=== PATIENT | female | born 1990 | race Caucasian/White ===

== ENCOUNTER 2018-08-07 12:04 | Emergency (ER) | payer BC ==
[2018-08-07 12:10] VITALS: BP 150/89; PULSE 110; TEMP 98.9; BMI 28.3
[2018-08-07] MEDS ORDERED: SODIUM CHLORIDE 1,000 ML IV STA (12:39)
--- NOTE | 2018-08-07 12:39 | PDOC ---
History of Present Illness <Bambi Bhatt - Last Filed: 08/07/18 13:12> - General History Source: Patient - History of Present Illness Timing/Duration: reports: getting worse <Denisa Arce - Last Filed: 08/07/18 14:32> - General Chief Complaint: Nausea/Vomiting Stated Complaint: NAUSEA/VOMITING Time Seen by Provider: 08/07/18 12:14 Past History <Bambi Bhatt - Last Filed: 08/07/18 13:12> - Past Medical History COPD: No - Suicide/Smoking/Psychosocial Hx Smoking History: Never smoked <Denisa Arce - Last Filed: 08/07/18 14:32> - Past Medical History Allergies/Adverse Reactions: Allergies Allergy/AdvReac Type Severity Reaction Status Date / Time No Known Allergies Allergy Verified 08/07/18 12:08 Home Medications: Ambulatory Orders Metoclopramide HCl [Reglan] 10 mg PO Q8H #15 tablet 08/07/18 Review of Systems - Review of Systems Constitutional: No: Chills, Fever ABD/GI: Yes: Nausea, Vomiting, Abdominal cramping : No: Dysuria, Flank Pain, Hematuria <Denisa Arce - Last Filed: 08/07/18 14:32> *Physical Exam - Vital Signs Last Vital Signs Temp Pulse Resp BP Pulse Ox 98.9 F 110 H 18 150/89 98 08/07/18 12:08 08/07/18 12:08 08/07/18 12:08 08/07/18 12:08 08/07/18 12:08 <Bambi Bhatt - Last Filed: 08/07/18 13:12> - Vital Signs Last Vital Signs Temp Pulse Resp BP Pulse Ox 98.9 F 110 H 18 150/89 98 08/07/18 12:08 08/07/18 12:08 08/07/18 12:08 08/07/18 12:08 08/07/18 12:08 - Physical Exam General Appearance: Yes: Appropriately Dressed. No: Apparent Distress HEENT: positive: Normal Voice Neck: positive: Supple Respiratory/Chest: negative: Respiratory Distress Gastrointestinal/Abdominal: positive: Soft. negative: Tender Musculoskeletal: negative: CVA Tenderness Integumentary: positive: Dry, Warm Neurologic: positive: Fully Oriented, Alert, Normal Mood/Affect <Denisa Arce - Last Filed: 08/07/18 14:32> ED Treatment Course - LABORATORY CBC & Chemistry Diagram: 08/07/18 12:59 08/07/18 12:59 - ADDITIONAL ORDERS Additional order review: Laboratory Results 08/07/18 12:49 Urine HCG, Qual Positive - Medications Given in the ED: ED Medications Discontinued Medications Generic Name Dose Route Start Last Admin Trade Name Chaparro PRN Reason Stop Dose Admin Metoclopramide HCl 10 mg 08/07/18 12:40 08/07/18 13:10 Reglan Injection - IVPB 08/07/18 12:41 10 mg ONCE ONE Administration <Bambi Bhatt - Last Filed: 08/07/18 13:12> - LABORATORY CBC & Chemistry Diagram: 08/07/18 12:59 08/07/18 12:59 <Denisa Arce - Last Filed: 08/07/18 14:32> Medical Decision Making - Medical Decision Making The patient was seen and evaluated in conjunction with midlevel provider under my direct supervision, ancillary studies were reviewed. I agree with the plan as outlined SANDIE Arce. HPI, workup/dispo as outlined. VS reviewed, mild tachycardia initially; likely from vomiting and physio state of 08/07/18 13:12 08/07/18 13:12 <Bambi Bhatt - Last Filed: 08/07/18 13:12> - Medical Decision Making 08/07/18 12:37 27 yo F, , tested + on home preg test 2 weeks ago per pt, approximately 7-8 weeks by dates, no as of yet and now here with intractable nausea, vomiting. Patient states she's been nauseous for several weeks and has vomited intermittently but for the past 2 days symptoms have worsened and now unable to tolerate po. Reports intermittent mild lower abdominal cramping but no vaginal bleed or dysuria see exam Hyperemesis gravidarum Exam only remarkable for HR of 111 -IVF -antiemetic -labs -US 08/07/18 12:50 08/07/18 14:32 Labs unremarkable. Patient reports feeling better with meds and able to tolerate po. Ultrasound read as +IUP at 6 weeks 1 day with heart rate. Stable for discharge. 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
[2018-08-07] MEDS ORDERED: METOCLOPRAMIDE HCL INJECTION 10 MG/2 ML VIAL IVPB ONE (12:40)
[2018-08-07] MEDS ORDERED: ONDANSETRON 4 MG/2 ML VIAL ONE (13:05)
[2018-08-07] MEDS ORDERED: METOCLOPRAMIDE HCL INJECTION 10 MG/2 ML VIAL ONE (13:06)
[2018-08-07 13:09] LABS: HCG,QUALITATIVE URINE Positive
[2018-08-07 13:13] LABS: BASO % 0.8 % (0-2.0); EOS % 1.8 % (0-4.5); HEMATOCRIT 38.3 % (32.4-45.2); HEMOGLOBIN 13.1 GM/dL (10.7-15.3); LYMPH % 22.4 % (8-40); MCHC 34.3 g/dl (32.0-36.0); MEAN CELL VOLUME 90.5 fl (80-96); PLATELET COUNT 269 K/MM3 (134-434); RBC 4.23 M/mm3 (3.60-5.2); RDW 13.1 % (11.6-15.6); WHITE BLOOD COUNT 7.3 K/mm3 (4.0-10.0)
[2018-08-07 13:15] LABS: PH,URINE 5.5 (5.0-8.0); URINE APPEARANCE CLEAR; URINE BILIRUBIN NEGATIVE (NEGATIVE); URINE COLOR YELLOW; URINE GLUCOSE (UA) NEGATIVE (NEGATIVE); URINE KETONE 2+ (NEGATIVE); URINE LEUK ESTERASE NEGATIVE (NEGATIVE); URINE NITRITE NEGATIVE (NEGATIVE); URINE PROTEIN NEGATIVE (NEGATIVE); URINE UROBILINOGEN 0.2 mg/dL (0.2-1.0)
[2018-08-07 13:45] LABS: ALBUMIN 4.2 g/dl (3.4-5.0); ALK PHOS 73 U/L (45-117); ANION GAP 9 MMOL/L (8-16); BILIRUBIN,TOTAL 0.7 mg/dL (0.2-1); BLOOD UREA NITROGEN 9 mg/dL (7-18); CALCIUM 9.7 mg/dL (8.5-10.1); CHLORIDE 104 mmol/L (98-107); CO2 24 mmol/L (21-32); CREATININE 0.5 mg/dL (0.55-1.3); GLUCOSE,RANDOM 77 mg/dL (74-106); POTASSIUM 4.3 mmol/L (3.5-5.1); SGOT/AST 15 U/L (15-37); SGPT/ALT 20 U/L (13-61); SODIUM 137 mmol/L (136-145); TOT PROT 8.2 g/dl (6.4-8.2)
== END 2018-08-07 14:50 | disposition home or self-care (01) ==
LOC: JER 12:04
PROC: 3E0337Z Introduction of Electrolytic and Water Balance Substance into Peripheral Vein, Percutaneous Approach (ICD-10-PCS; principal; 2018-08-07)
PROC: 3E033GC Introduction of Other Therapeutic Substance into Peripheral Vein, Percutaneous Approach (ICD-10-PCS; 2018-08-07)
DX: O26.891 Other specified pregnancy related conditions, first trimester (principal); O21.0 Mild hyperemesis gravidarum; Z3A.08 8 weeks gestation of pregnancy
CPT/HCPCS: 36415; 76817-TC; 80053; 81003; 84702; 84703; 85025; 99281-25; J7030

== ENCOUNTER 2018-09-06 20:00 | Emergency (ER) | payer BC | END 2018-09-07 02:05 | disposition home or self-care (01) | LOC: JER 09-07 02:05 | PROC: 3E033GC Introduction of Other Therapeutic Substance into Peripheral Vein, Percutaneous Approach (ICD-10-PCS; principal; 2018-09-06) | DX: O26.891 Other specified pregnancy related conditions, first trimester (principal); O21.0 Mild hyperemesis gravidarum; Z3A.10 10 weeks gestation of pregnancy ==

== ENCOUNTER 2018-09-14 15:24 | Emergency (ER) | payer BC | END 2018-09-14 20:26 | disposition home or self-care (01) | LOC: JER 15:24 ==

== ENCOUNTER 2018-09-26 20:05 | Inpatient (IN) | payer BC ==
[2018-09-26 20:55] LABS: BASO % 0.4 % (0-2.0); EOS % 0.3 % (0-4.5); HEMOGLOBIN 14.6 GM/dL (10.7-15.3); LYMPH % 15.2 % (8-40); MCH 29.9 pg (25.7-33.7); MEAN PLT VOLUME 9.1 fl (7.5-11.1); MONO % 9.8 % (3.8-10.2); NEUT % 74.3 % (42.8-82.8); PLATELET COUNT 272 K/MM3 (134-434); RBC 4.89 M/mm3 (3.60-5.2); RDW 14.5 % (11.6-15.6); WHITE BLOOD COUNT 10.9 K/mm3 (4.0-10.0)
[2018-09-26] MEDS ORDERED: FAMOTIDINE 20 MG/50 ML IVPB 20 MG/50 ML MG IVPB ONE ×2 (21:16→21:29)
[2018-09-26] MEDS ORDERED: ONDANSETRON 4 MG/2 ML VIAL IVPUSH ONE (21:16)
[2018-09-26] MEDS ORDERED: ONDANSETRON 4 MG/2 ML VIAL ONE (21:22)
--- NOTE | 2018-09-26 21:35 | PDOC ---
Documentation entered by Aimee Langston SCRIBE, acting as scribe for Anuja Meadows DO. Anuja Meadows DO: This documentation has been prepared by the Ivis page Sammi, SCRIBE, under my direction and personally reviewed by me in its entirety. I confirm that the documentation accurately reflects all work, treatment, procedures, and medical decision making performed by me. History of Present Illness - General Chief Complaint: Nausea/Vomiting Stated Complaint: PREG/13 WKS/NEEDS FLUIDS Time Seen by Provider: 09/26/18 20:41 History Source: Patient Exam Limitations: No Limitations - History of Present Illness Initial Comments: 09/26/18 21:40 The patient is a 28 year old 13 week female, , with a significant PMH of hyperemesis gravidarum, who presents to the emergency department for evaluation of several days of nausea and multiple episodes/day of bloody, bilious vomit, not able to keep anything down PO. The patient states she was advised to come to the ED by her HEAD BUYER TOBACCO if the vomiting has not subsided after 48 hours. She notes taking her prescribed zofran with little relief. The patient reports dysuria and her last bowel movement sometime last week. Denies vaginal discharge or bleeding. The patient denies chest pain, shortness of breath, headache and dizziness. Denies fever, chills, diarrhea and constipation. Allergies: Acetaminophen HEAD BUYER TOBACCO: Aby Past History - Past Medical History Allergies/Adverse Reactions: Allergies Allergy/AdvReac Type Severity Reaction Status Date / Time acetaminophen [From Tylenol] Allergy Severe Swelling Verified 09/26/18 20:31 Home Medications: Ambulatory Orders Metoclopramide HCl [Reglan] 10 mg PO Q8H #15 tablet 08/07/18 Ondansetron [Zofran Odt -] 4 mg SL TID PRN #30 od.tablet 09/14/18 COPD: No - Reproductive History Is Patient Now?: Yes Therapeutic (s) & number: No - Immunization History Immunization Up to Date: Yes - Suicide/Smoking/Psychosocial Hx Smoking History: Never smoked Have you smoked in the past 12 months: No Information on smoking cessation initiated: No Hx Alcohol Use: No Drug/Substance Use Hx: No Review of Systems - Review of Systems Comments:: 09/26/18 21:41 GENERAL/CONSTITUTIONAL: No fever or chills. No weakness. HEAD, EYES, EARS, NOSE AND THROAT: No change in vision. No ear pain or discharge. No sore throat. CARDIOVASCULAR: No chest pain or shortness of breath. RESPIRATORY: No cough, wheezing, or hemoptysis. GASTROINTESTINAL: (+)Nausea, (+)bloody, bilious, vomiting. (+)constipation. GENITOURINARY: (+) dysuria MUSCULOSKELETAL: No joint or muscle swelling or pain. No neck or back pain. SKIN: No rash NEUROLOGIC: No headache, vertigo, loss of consciousness, or change in strength/ sensation. *Physical Exam - Vital Signs Last Vital Signs Temp Pulse Resp BP Pulse Ox 98.8 F 116 H 18 131/90 100 09/26/18 20:29 09/26/18 20:29 09/26/18 20:29 09/26/18 20:29 09/26/18 20:29 - Physical Exam Comments: 09/26/18 21:41 GENERAL: Awake, alert, and fully oriented, in no acute distress HEAD: No signs of trauma EYES: PERRLA, EOMI, sclera anicteric, conjunctiva clear ENT: (+)Dry mucous mebrane. Auricles normal inspection, hearing grossly normal, nares patent, oropharynx clear without exudates. NECK: Normal ROM, supple, no lymphadenopathy, JVD, or masses LUNGS: Breath sounds equal, clear to auscultation bilaterally. No wheezes, and no crackles HEART: (+)tachycardic. normal S1 and S2, no murmurs, rubs or gallops ABDOMEN: (+)tender epigastric area. Soft, normoactive bowel sounds. No guarding , no rebound. No masses EXTREMITIES: Normal range of motion, no edema. No clubbing or cyanosis. No cords, erythema, or tenderness NEUROLOGICAL: Cranial nerves II through XII grossly intact. Normal speech, normal gait SKIN: Warm, Dry, normal turgor, no rashes or lesions noted ED Treatment Course - LABORATORY CBC & Chemistry Diagram: 09/26/18 20:42 09/26/18 20:42 - ADDITIONAL ORDERS Additional order review: 09/26/18 20:42 RBC 4.89 MCV 88.0 MCHC 34.0 RDW 14.5 MPV 9.1 Neutrophils % 74.3 Lymphocytes % 15.2 Monocytes % 9.8 Eosinophils % 0.3 D Basophils % 0.4 - Medications Given in the ED: ED Medications Discontinued Medications Generic Name Dose Route Start Last Admin Trade Name Chaparro PRN Reason Stop Dose Admin Ondansetron HCl 4 mg 09/26/18 21:16 09/26/18 21:25 Zofran Injection IVPUSH 09/26/18 21:17 4 mg ONCE ONE Administration Medical Decision Making - Medical Decision Making 09/26/18 21:29 a/p: 28yo at 13 weeks gestation with persistent N/V -unable to tolerate sips of water at home, has been unable to tolerate her zofran or her vitamins -pt seen by Dr. Badillo 2 weeks ago, discussed with the office earlier this week who recommended that if the vomiting continue she come to the ED for hyperemesis gravidarum -pt with vomiting with blood tingued vomitus and bilious vomiting -pt with tachy, dry mm -will send labs, beta, -pt denies vaginal complaints, no bleeding -bedside ultrasound shows fhr 178 -pt speaking in clear sentences, mild epigastric pain, no rebound or guarding -pt also c/o dysuria - will send ua/ucx -pt will need ivf, pepcid, zofran -will discuss with Dr. Badillo GOLD BUYER -will continue to monitor 09/26/18 21:[address] Rand - if electrolyte abnl or persistent nv in the ED then poss admission, otherwise hydrate, monitor, give d5 and agrees with meds and plan 09/26/18 22:49 pt still spitting up phlegm and green bile will add reglan will replace potassium elevated lft, will send to ultrasound 09/27/18 00:11 case again discussed with dr. rand, given elevated lft, persistent vomiting in the Ed, low potassium, uti - will admit for hyperemesis, uti -pt updated - clear vomitus at this time- ultrasound shows gb filled with sludge, no signs of acute bill *DC/Admit/Observation/Transfer Diagnosis at time of Disposition: Hyperemesis gravidarum, Transaminitis, UTI (urinary tract infection) - Discharge Dispostion Condition at time of disposition: Fair Decision to Admit order: Yes - Referrals - Patient Instructions - Post Discharge Activity - Attestations Physician Attestion: 09/27/18 00:12 I, Dr. Anuja Meadows, DO, attest that this document has been prepared under my direction and personally reviewed by me in its entirety. I further attest, that it accurately reflects all work, treatment, procedures and medical decision -making performed by me.
[2018-09-26 21:42] LABS: ALBUMIN 4.2 g/dl (3.4-5.0); BILIRUBIN,TOTAL 2.3 mg/dL (0.2-1); BLOOD UREA NITROGEN 8.2 mg/dL (7-18); CREATININE 0.6 mg/dL (0.55-1.3); POTASSIUM 3.2 mmol/L (3.5-5.1); TOT PROT 8.2 g/dl (6.4-8.2)
[2018-09-26] MEDS ORDERED: SODIUM CHLORIDE 0.9% 1000 ML INFUS.BAG IV ONE ×2 (21:43)
[2018-09-26] MEDS ORDERED: DEXTROSE 5%-NORMAL SALINE 500 ML IV ONE (21:43)
[2018-09-26 22:27] LABS: EPI CELLS 11.6 /HPF (0-5/HPF); HYALINE CASTS 44 /lpf (0-8); URINE APPEARANCE CLOUDY; URINE BACTERIA 1182.9 /hpf (NEGATIVE); URINE BILIRUBIN 2+ (NEGATIVE); URINE COLOR DK YELLOW; URINE GLUCOSE (UA) NEGATIVE (NEGATIVE); URINE KETONE 4+ (NEGATIVE); URINE LEUK ESTERASE 1+ (NEGATIVE); URINE NITRITE POSITIVE (NEGATIVE); URINE PROTEIN 1+ (NEGATIVE); URINE RBC 3 /hpf (0-4); URINE WBC 17 /hpf (0-5)
[2018-09-26 23:04] LABS: YEAST NO SEEN (NEGATIVE)
[2018-09-26] MEDS ORDERED: KCL 10 MEQ IVPB 10 MEQ/100 ML INFUS.BAG IVPB ONE (23:31)
[2018-09-26] MEDS: KCL 10 MEQ IVPB 10 MEQ/100 ML INFUS.BAG IVPB SCH (23:38)
[2018-09-26] MEDS ORDERED: CEFTRIAXONE 1 GM in DEXTROSE 5%-WATER - 100 ML IVPB ONE (23:52)
[2018-09-27] MEDS ORDERED: METOCLOPRAMIDE HCL INJECTION 10 MG/2 ML VIAL IVPUSH ONE (00:10)
[2018-09-27] MEDS ORDERED: ONDANSETRON 4 MG/2 ML VIAL IM PRN (00:17)
[2018-09-27] MEDS ORDERED: CEFTRIAXONE 1 GM in DEXTROSE 5%-WATER - 50 ML IVPB ONE (00:26)
[2018-09-27] MEDS ORDERED: KCL 10 MEQ IVPB 10 MEQ/100 ML INFUS.BAG IVPB ONE (01:01)
[2018-09-27] MEDS ORDERED: CEFTRIAXONE 1 GM/50 ML BAG ONE (01:01)
[2018-09-27] MEDS ORDERED: METOCLOPRAMIDE HCL INJECTION 10 MG/2 ML VIAL ONE (01:01)
[2018-09-27] MEDS: DEXTROSE 5%-LACTATED RINGERS 1,000 ML IV SCH ×2 (01:30→09:11)
[2018-09-27] MEDS: KCL 10 MEQ IVPB 10 MEQ/100 ML INFUS.BAG IVPB SCH ×5 (01:48→15:35)
[2018-09-27 03:53] VITALS: BMI 26.2
[2018-09-27] MEDS: PROMETHAZINE HCL 25 MG SUPPOSITORY PR SCH ×3 (06:10→22:43)
--- NOTE | 2018-09-27 07:18 | HP ---
Past Medical History - Primary Care Physician PCP:: Joanna Dewey - Admission Chief Complaint: Nausea Vomiting History of Present Illness: 28 yo ega 13 weeks with admitted with hyperemesis gravidarum, nausea, hypokalemia UTI and elevated liver enzymes Pt improved since admission History Source: Patient Limitations to Obtaining History: No Limitations - Past Medical History Pulmonary: Yes: Asthma ...: 1 - Past Surgical History Past Surgical History: Yes: None Hx Myomectomy: No Hx Transabdominal Cerclage: No - Smoking History Smoking history: Never smoked Have you smoked in the past 12 months: No - Alcohol/Substance Use Hx Alcohol Use: No History of Substance Use: reports: None - Social History Usual Living Arrangement: Yes: With Spouse History of Recent Travel: No Home Medications - Allergies Allergies/Adverse Reactions: Allergies Allergy/AdvReac Type Severity Reaction Status Date / Time acetaminophen [From Tylenol] Allergy Severe Swelling Verified 09/26/18 20:31 - Home Medications Home Medications: Ambulatory Orders Metoclopramide HCl [Reglan] 10 mg PO Q8H #15 tablet 08/07/18 Ondansetron [Zofran Odt -] 4 mg SL TID PRN #30 od.tablet 09/14/18 Review of Systems - Review of Systems Constitutional: reports: Loss of Appetite Eyes: reports: No Symptoms HENT: reports: No Symptoms Neck: reports: No Symptoms Cardiovascular: reports: No Symptoms Respiratory: reports: No Symptoms Gastrointestinal: reports: Vomiting Genitourinary: reports: No Symptoms Breasts: reports: No Symptoms Reported Musculoskeletal: reports: No Symptoms Integumentary: reports: No Symptoms Neurological: reports: No Symptoms Endocrine: reports: No Symptoms Hematology/Lymphatic: reports: No Symptoms Psychiatric: reports: No Symptoms Physical Exam - Maternity Vital Signs: Vital Signs Temperature 98.2 F 09/27/18 03:40 Pulse Rate 97 H 09/27/18 03:40 Respiratory Rate 18 09/27/18 03:40 Blood Pressure 120/76 09/27/18 03:40 O2 Sat by Pulse Oximetry (%) 99 09/27/18 03:40 Constitutional: Yes: Well Nourished Cardiovascular: Yes: WNL - Vaginal Exam/OB Vaginal Bleediing: No - Physical Exam Musculoskeletal: Yes: WNL Extremities: Yes: WNL Edema: No Psychiatric: Yes: WNL, Alert, Oriented - Labs Lab Results: CBC, BMP 09/26/18 20:42 Problem List - Problems (1) Hyperemesis gravidarum Code(s): O21.0 - MILD HYPEREMESIS GRAVIDARUM (2) UTI (urinary tract infection) Code(s): N39.0 - URINARY TRACT INFECTION, SITE NOT SPECIFIED (3) Hypokalemia Code(s): E87.6 - HYPOKALEMIA Assessment/Plan IUp at 13 week HYperemesis ngravidarum hypokalemia elevated tranaminases nausea vomiting Bilary problems Plan Ceftriaxone 1 gm hospitalist consult GI consult clears potassium run Zantac BID
[2018-09-27 07:58] LABS: ALBUMIN 2.7 g/dl (3.4-5.0); BILIRUBIN,TOTAL 1.3 mg/dL (0.2-1); CREATININE 0.3 mg/dL (0.55-1.3); POTASSIUM 3.1 mmol/L (3.5-5.1); TOT PROT 5.2 g/dl (6.4-8.2)
[2018-09-27] MEDS: RANITIDINE HCL 150 MG TABLET (FP) PO SCH ×2 (09:11→21:41)
--- NOTE | 2018-09-27 09:43 | CON.GI ---
Consult Consult Specialty:: GI Referred by:: Hospitalist Service / VP INFORMATION TECHNOLOGY Reason for Consultation:: Nausea / vomiting - History of Present Illness Chief Complaint: Persistent nausea / vomiting History of Present Illness: [id number] 13 weeks admitted for evaluation of persistent nausea and vomiting. This has persisted intermittently through her 1st trimester. She was seen at the [facility] ER 09/06/18 for similar complaints and was discharged home. CBC and electrolytes were normal at that time. She was trialed on two antiemetics at home. She cannot remember one of them and reglan seemed to help "a little". She presented to the ER yesterday due to worsening of her symptoms. She also states that her blood pressure was high. BP on admission was 130/90 and she had a mild leukocytosis as well as elevated transaminases, ALP and bilirubin. She described epigastric pain, however, only after multiple episodes of retching. She otherwise denies RUQ pain, fevers/chills, rectal bleeding, diarrhea, change in bowel habits, jaundiced episodes. She traveled to the [facility] 05/29 and had an uneventful trip and return home. She also traveled to [facility] weekend and describes receiving a lot of mosquito bites. An erythematous, pruritic rash developed about 3 weeks ago (mid chest, then noted on upper back) that seemed to be resolving. She denies marijuana or other ilicit drug use. She seems to be tolerating some clear liquids today. - History Source History Provided By: Patient, Medical Record - Past Medical History Pulmonary: Yes: Asthma ...: Yes - Past Surgical History Past Surgical History: Yes: None - Alcohol/Substance Use Hx Alcohol Use: No History of Substance Use: reports: None - Smoking History Smoking history: Never smoked Have you smoked in the past 12 months: No - Social History Usual Living Arrangement: With Spouse ADL: Independent Place of : Other ([facility]) History of Recent Travel: No Home Medications - Allergies Allergies/Adverse Reactions: Allergies Allergy/AdvReac Type Severity Reaction Status Date / Time acetaminophen [From Tylenol] Allergy Severe Swelling Verified 09/26/18 20:31 - Home Medications Home Medications: Ambulatory Orders Metoclopramide HCl [Reglan] 10 mg PO Q8H #15 tablet 08/07/18 Ondansetron [Zofran Odt -] 4 mg SL TID PRN #30 od.tablet 09/14/18 Family Disease History - Family Disease History Family Disease History: Other: Grandparent (Maternal GF possibly with colon ca) , Father (Alive: HTN), Mother (Alive: Healthy), Brother (2, healthy), Sister (1 , healthy) Other Family History: No family history of liver disease Review of Systems - Review of Systems Constitutional: denies: Chills, Fever, Unintentional Wgt. Loss Cardiovascular: denies: Chest Pain Respiratory: denies: SOB Gastrointestinal: reports: Abdominal Pain, Nausea, Vomiting. denies: Constipation, Diarrhea, Dysphagia, Melena, Rectal Bleeding, Vomiting Blood Physical Exam-GI Vital Signs: Vital Signs Temperature 98.2 F 09/27/18 03:40 Pulse Rate 97 H 09/27/18 03:40 Respiratory Rate 18 09/27/18 03:40 Blood Pressure 120/76 09/27/18 03:40 O2 Sat by Pulse Oximetry (%) 99 09/27/18 03:40 Constitutional: Yes: Calm Eyes: No: Sclera Icterus Cardiovascular: Yes: Regular Rate and Rhythm, Other (mid chest: appears to be drying rash on upper mid back as well) Respiratory: Yes: CTA Bilaterally Gastrointestinal Inspection: No: Distention, Scars ...Auscultate: Yes: Normoactive Bowel Sounds ...Palpate: Yes: Soft. No: Hepatomegaly, Splenomegaly, Tenderness ...Percussion: No: Tympanitic Edema: No (No LE edema) Neurological: Yes: Alert, Oriented Labs: CBC, BMP 09/26/18 20:42 09/27/18 06:40 Hepatic Panel Total Bilirubin 1.3 mg/dL (0.2-1) H 09/27/18 06:40 AST 56 U/L (15-37) H 09/27/18 06:40 ALT 151 U/L (13-61) H 09/27/18 06:40 Alkaline Phosphatase 73 U/L (45-117) 09/27/18 06:40 Albumin 2.7 g/dl (3.4-5.0) L 09/27/18 06:40 Imaging - Results Ultrasound: Report Reviewed (Nondilated biliary tract, + sludge, no thickening of GB wall/pericholecystic fluid) Problem List - Problems (1) Hyperemesis gravidarum Assessment/Plan: With associated liver chemistry abnormaities and leukocytosis, with associated abnormal liver chemistries: Seems to have improved today clinically as have liver chemistries Advise: IV hydration per PMD Continued trial of clear liquids: asked nurse to offer Sergie ensure clear as well Added Pyridoxine 25mg PO TID to current regimen Ranitidine 150mg PO BID Antiemetics per landscaper Replete lytes Monitor LFTs. Ordered screening hepatitis serologies If LFTs continue to rise in obstructive pattern, consider MRCP to further evaluate biliary tract Code(s): O21.0 - MILD HYPEREMESIS GRAVIDARUM
[2018-09-27 10:39] LABS: BASO % 0.5 % (0-2.0); EOS % 0.9 % (0-4.5); HEMATOCRIT 29.1 % (32.4-45.2); HEMOGLOBIN 10.3 GM/dL (10.7-15.3); LYMPH % 21.9 % (8-40); MCH 31.1 pg (25.7-33.7); MCHC 35.3 g/dl (32.0-36.0); MEAN CELL VOLUME 87.9 fl (80-96); MEAN PLT VOLUME 9.3 fl (7.5-11.1); MONO % 11.5 % (3.8-10.2); NEUT % 65.2 % (42.8-82.8); PLATELET COUNT 187 K/MM3 (134-434); RBC 3.31 M/mm3 (3.60-5.2); RDW 14.5 % (11.6-15.6); WHITE BLOOD COUNT 6.2 K/mm3 (4.0-10.0)
[2018-09-27 11:15] LABS: MAGNESIUM 1.8 mg/dL (1.8-2.4); PHOSPHOROUS 1.8 mg/dL (2.5-4.9)
[2018-09-27] MEDS ORDERED: POTASSIUM CHLORIDE TABS 10 MEQ TABLET.ER (FP) PO ONE (13:40)
--- NOTE | 2018-09-27 13:40 | CONSULT ---
Consultation: REQUESTING PROVIDER: CONSULT REQUEST: We have been asked to medically evaluate this patient for hypokalemia. HISTORY OF PRESENT ILLNESS: 28 yo @ 13 wks w/ no PMH admitted for hyperemesis gravidarum. Medicine consulted for the management of hypokalemia in the setting of vomiting. Patient feels better on interview, states she was able to tolerate CLD earlier. Endorses dyuria. And constipation. REVIEW OF SYSTEMS: CONSTITUTIONAL: Absent: fever, chills, diaphoresis, generalized weakness, malaise, loss of appetite, weight change HEENT: Absent: rhinorrhea, nasal congestion, throat pain, throat swelling, difficulty swallowing, mouth swelling, ear pain, eye pain, visual changes CARDIOVASCULAR: Absent: chest pain, syncope, palpitations, irregular heart rate, lightheadedness , peripheral edema RESPIRATORY: Absent: cough, shortness of breath, dyspnea with exertion, orthopnea, wheezing, stridor, hemoptysis GASTROINTESTINAL: Absent: abdominal pain, abdominal distension, diarrhea, melena, hematochezia GENITOURINARY: Absent: frequency, urgency, hesitancy, hematuria, flank pain, genital pain MUSCULOSKELETAL: Absent: myalgia, arthralgia, joint swelling, back pain, neck pain SKIN: Absent: rash, itching, pallor HEMATOLOGIC/IMMUNOLOGIC: Absent: easy bleeding, easy bruising, lymphadenopathy, frequent infections ENDOCRINE: Absent: unexplained weight gain, unexplained weight loss, heat intolerance, cold intolerance NEUROLOGIC: Absent: headache, focal weakness or paresthesias, dizziness, unsteady gait, seizure, mental status changes, bladder or bowel incontinence PSYCHIATRIC: Absent: anxiety, depression, suicidal or homicidal ideation, hallucinations. PHYSICAL EXAMINATION Vital Signs - 24 hr 09/26/18 09/27/18 09/27/18 20:29 01:44 03:40 Temperature 98.8 F 97.9 F 98.2 F Pulse Rate 116 H 97 H Pulse Rate [ 88 Left Radial] Respiratory 18 20 18 Rate Blood Pressure 131/90 120/76 Blood Pressure 129/87 [Left Arm] O2 Sat by Pulse 100 99 99 Oximetry (%) GENERAL: Awake, alert, and fully oriented, in no acute distress. LUNGS: Breath sounds equal, clear to auscultation bilaterally. No wheezes, and no crackles. No accessory muscle use. HEART: Regular rate and rhythm, normal S1 and S2. Systolic flow murmur best heard at the LUSB. ABDOMEN: Soft, nontender, Gravid abdomen, normoactive bowel sounds, no guarding , no rebound, no masses. No hepatomegaly or splenomegaly. LOWER EXTREMITIES: 2+ pulses, warm, well-perfused. No calf tenderness. No peripheral edema. NEUROLOGICAL: Cranial nerves II-X intact. Normal speech. PSYCHIATRIC: Cooperative. Good eye contact. Appropriate mood and affect. SKIN: Warm, dry, normal turgor, no rashes or lesions noted. Laboratory Results - last 24 hr 09/26/18 09/26/18 09/26/18 20:42 20:42 21:56 WBC 10.9 H RBC 4.89 Hgb 14.6 Hct 43.0 MCV 88.0 MCH 29.9 MCHC 34.0 RDW 14.5 Plt Count 272 MPV 9.1 Absolute Neuts (auto) 8.1 H Neutrophils % 74.3 Lymphocytes % 15.2 Monocytes % 9.8 Eosinophils % 0.3 D Basophils % 0.4 Nucleated RBC % 0 Sodium 134 L Potassium 3.2 L Chloride 96 L Carbon Dioxide 27 Anion Gap 12 BUN 8.2 Creatinine 0.6 Est GFR (CKD-EPI)AfAm 145.80 Est GFR (CKD-EPI)NonAf 125.80 Random Glucose 84 Calcium 10.0 Phosphorus Magnesium Total Bilirubin 2.3 H AST 96 H ALT 255 H Alkaline Phosphatase 127 H Total Protein 8.2 Albumin 4.2 Beta HCG, Quant 841050.9 Urine Color Dk yellow Urine Appearance Cloudy Urine pH 6.0 Ur Specific [place] 1.022 Urine Protein 1+ H Urine Glucose (UA) Negative Urine Ketones 4+ H Urine Blood Negative Urine Nitrite Positive H Urine Bilirubin 2+ H Urine Urobilinogen 2.0 H Ur Leukocyte Esterase 1+ H Urine WBC (Auto) 17 Urine RBC (Auto) 3 Urine Casts (Auto) 44 U Pathogenic Cast Auto No seen U Epithel Cells (Auto) 11.6 Urine Bacteria (Auto) 1182.9 Urine Yeast (Auto) No seen 09/27/18 09/27/18 09/27/18 06:40 09:55 09:55 WBC 6.2 RBC 3.31 L Hgb 10.3 L Hct 29.1 L D MCV 87.9 MCH 31.1 MCHC 35.3 RDW 14.5 Plt Count 187 D MPV 9.3 Absolute Neuts (auto) 4.1 Neutrophils % 65.2 Lymphocytes % 21.9 D Monocytes % 11.5 H Eosinophils % 0.9 D Basophils % 0.5 Nucleated RBC % 0 Sodium 140 Potassium 3.1 L Chloride 109 H Carbon Dioxide 24 Anion Gap 7 L BUN 3.0 L Creatinine 0.3 L Est GFR (CKD-EPI)AfAm 183.15 Est GFR (CKD-EPI)NonAf 158.02 Random Glucose 89 Calcium 8.0 L Phosphorus 1.8 L Magnesium 1.8 Total Bilirubin 1.3 H AST 56 H ALT 151 H Alkaline Phosphatase 73 Total Protein 5.2 L Albumin 2.7 L Beta HCG, Quant Urine Color Urine Appearance Urine pH Ur Specific [place] Urine Protein Urine Glucose (UA) Urine Ketones Urine Blood Urine Nitrite Urine Bilirubin Urine Urobilinogen Ur Leukocyte Esterase Urine WBC (Auto) Urine RBC (Auto) Urine Casts (Auto) U Pathogenic Cast Auto U Epithel Cells (Auto) Urine Bacteria (Auto) Urine Yeast (Auto) Active Medications Generic Name Dose Route Start Last Admin Trade Name Freq PRN Reason Stop Dose Admin Dextrose/Lactated Ringer's 1,000 mls @ 125 mls/hr 09/27/18 00:15 09/27/18 09: 11 D5-Lr - IV 125 mls/hr ASDIR EVER Administration Ceftriaxone Sodium 1 gm/ 50 mls @ 100 mls/hr 09/28/18 00:00 Dextrose IVPB DAILY@0000 EVER Ondansetron HCl 4 mg 09/27/18 00:17 Zofran Injection IM Q6H PRN NAUSEA AND/OR VOMITING Promethazine HCl 25 mg 09/27/18 06:00 09/27/18 06:10 Phenergan Suppository - [place] 25 mg TID EVER Administration Pyridoxine HCl 25 mg 09/27/18 14:00 Vitamin B6 - PO TID EVER Ranitidine HCl 150 mg 09/27/18 10:00 09/27/18 09:11 Zantac - PO 150 mg BID EVER Administration ASSESSMENT/PLAN: 28 yo @ 13 wks w/ no PMH admitted for hyperemesis gravidarum. Medicine consulted for the management of hypokalemia in the setting of vomiting. Patient feels better on interview, states she was able to tolerate CLD earlier. #hypokalemia 2/2 hyperemesis gravidarum -K+3.1 -magnesium 1.8 -s/p KCL 10meq x2; running slow 2/2 burning -ordered KCL 10meq IV x 2 more -will recheck bmp w/ mag @ 1800 #dysuria in -s/p rochephin, continue -will obtain ucx #systolic flow murmur -likely physiologic in the setting of -no further workup at this time -consider cardio follow up as outpatient if murmur persists after #transaminitis -possibly 2/2 vs obstructive in nature -trending down -monitor trend -hepatitis serologies -will pursue further workup if LFTs trend upward again. Dispo: We will continue to follow the patient. Thank you for this consultative opportunity. Visit type - Emergency Visit Emergency Visit: Yes ED Registration Date: 09/27/18 Care time: The patient presented to the Emergency Department on the above date and was hospitalized for further evaluation of their emergent condition. - New Patient This patient is new to me today: Yes Date on this admission: 09/27/18 - Critical Care Critical Care patient: No
[2018-09-27] MEDS ORDERED: KCL 10 MEQ IVPB 10 MEQ/100 ML INFUS.BAG IVPB SCH (13:45)
[2018-09-27] MEDS: PYRIDOXINE HCL (B-6) 50 MG TABLET (FP) PO SCH ×2 (15:35→22:44)
--- NOTE | 2018-09-27 16:02 | PN ---
Teaching Attending Note Name of Resident: Meliton Carvalho ATTENDING PHYSICIAN STATEMENT I saw and evaluated the patient. I reviewed the resident's note and discussed the case with the resident. I agree with the resident's findings and plan as documented. SUBJECTIVE: Feels well. Nausea/Vomiting improving. Mild generalized abdominal discomfort. Reports some bright red blood in vomitus. No melena/hematochezia/ diarrhea. No fever/chills. OBJECTIVE: Afebrile, Hemodynamically Stable. Last Vital Signs Temp Pulse Resp BP Pulse Ox 98.2 F 97 H 18 120/76 99 09/27/18 03:40 09/27/18 03:40 09/27/18 03:40 09/27/18 03:40 09/27/18 03:40 HEENT - Atraumatic, Normocephalic. Heart - S1, S2, RRR Lungs -clear to auscultation Abdomen - gravid abdomen. Soft. Mild generalized tenderness. Bowel Sounds normal. Extremities - No edema, no calf tenderness. Laboratory Results - last 24 hr 09/26/18 09/26/18 09/26/18 20:42 20:42 21:56 WBC 10.9 H RBC 4.89 Hgb 14.6 Hct 43.0 MCV 88.0 MCH 29.9 MCHC 34.0 RDW 14.5 Plt Count 272 MPV 9.1 Absolute Neuts (auto) 8.1 H Neutrophils % 74.3 Lymphocytes % 15.2 Monocytes % 9.8 Eosinophils % 0.3 D Basophils % 0.4 Nucleated RBC % 0 Sodium 134 L Potassium 3.2 L Chloride 96 L Carbon Dioxide 27 Anion Gap 12 BUN 8.2 Creatinine 0.6 Est GFR (CKD-EPI)AfAm 145.80 Est GFR (CKD-EPI)NonAf 125.80 Random Glucose 84 Calcium 10.0 Phosphorus Magnesium Total Bilirubin 2.3 H AST 96 H ALT 255 H Alkaline Phosphatase 127 H Total Protein 8.2 Albumin 4.2 Beta HCG, Quant 498376.9 Urine Color Dk yellow Urine Appearance Cloudy Urine pH 6.0 Ur Specific [place] 1.022 Urine Protein 1+ H Urine Glucose (UA) Negative Urine Ketones 4+ H Urine Blood Negative Urine Nitrite Positive H Urine Bilirubin 2+ H Urine Urobilinogen 2.0 H Ur Leukocyte Esterase 1+ H Urine WBC (Auto) 17 Urine RBC (Auto) 3 Urine Casts (Auto) 44 U Pathogenic Cast Auto No seen U Epithel Cells (Auto) 11.6 Urine Bacteria (Auto) 1182.9 Urine Yeast (Auto) No seen 09/27/18 09/27/18 09/27/18 06:40 09:55 09:55 WBC 6.2 RBC 3.31 L Hgb 10.3 L Hct 29.1 L D MCV 87.9 MCH 31.1 MCHC 35.3 RDW 14.5 Plt Count 187 D MPV 9.3 Absolute Neuts (auto) 4.1 Neutrophils % 65.2 Lymphocytes % 21.9 D Monocytes % 11.5 H Eosinophils % 0.9 D Basophils % 0.5 Nucleated RBC % 0 Sodium 140 Potassium 3.1 L Chloride 109 H Carbon Dioxide 24 Anion Gap 7 L BUN 3.0 L Creatinine 0.3 L Est GFR (CKD-EPI)AfAm 183.15 Est GFR (CKD-EPI)NonAf 158.02 Random Glucose 89 Calcium 8.0 L Phosphorus 1.8 L Magnesium 1.8 Total Bilirubin 1.3 H AST 56 H ALT 151 H Alkaline Phosphatase 73 Total Protein 5.2 L Albumin 2.7 L Beta HCG, Quant Urine Color Urine Appearance Urine pH Ur Specific [place] Urine Protein Urine Glucose (UA) Urine Ketones Urine Blood Urine Nitrite Urine Bilirubin Urine Urobilinogen Ur Leukocyte Esterase Urine WBC (Auto) Urine RBC (Auto) Urine Casts (Auto) U Pathogenic Cast Auto U Epithel Cells (Auto) Urine Bacteria (Auto) Urine Yeast (Auto) Current Medications Generic Name Dose Route Start Last Admin Trade Name Freq PRN Reason Stop Dose Admin Dextrose/Lactated Ringer's 1,000 mls @ 125 mls/hr 09/27/18 00:15 09/27/18 09: 11 D5-Lr - IV 125 mls/hr ASDIR EVER Administration Ceftriaxone Sodium 1 gm/ 50 mls @ 100 mls/hr 09/28/18 00:00 Dextrose IVPB DAILY@0000 EVER Potassium Chloride 10 meq in 100 mls @ 100 mls/hr 09/27/18 14:15 09/27/18 15: 35 Potassium Chloride 10 Meq Premix Ivpb - IVPB 09/27/18 16:14 100 mls/hr Q60M EVER Administration Ondansetron HCl 4 mg 09/27/18 00:17 Zofran Injection IM Q6H PRN NAUSEA AND/OR VOMITING Promethazine HCl 25 mg 09/27/18 06:00 09/27/18 15:35 Phenergan Suppository - [place] 25 mg TID EVER Administration Pyridoxine HCl 25 mg 09/27/18 14:00 09/27/18 15:35 Vitamin B6 - PO 25 mg TID EVER Administration Ranitidine HCl 150 mg 09/27/18 10:00 09/27/18 09:11 Zantac - PO 150 mg BID EVER Administration Home Medications Medication Instructions Recorded Metoclopramide HCl [Reglan] 10 mg PO Q8H #15 tablet 08/07/18 Ondansetron [Zofran Odt -] 4 mg SL TID PRN #30 od.tablet 09/14/18 ASSESSMENT AND PLAN: 28 year old female, 13 weeks , admitted with hyperemesis gravidum. Medicine service consulted for Hypokalemia of 3.1. 1. Hypokalemia and Hypophosphatemia sec secondary to gastric fluid loss due to vomiting K 3.1 Replace IV 10mEq x 4. Will monitor K/Mg/Phos levels 2. Hyperemesis Gravidum Management with IV fluids/Antiemetics as per OBGYN 3. Elevated Transaminases and reported bloody vomitus - will defer to GI for further Ix/Management. Discussed plan with Zuleima Blanca - agrees to change Ceftriaxone Abx given elevated LFTs and propensity of cephalosporin to cause cholestasis. Abx apparently being given for possible UTI. Advised to resend Urine Cx as initial Cx appears to have been cancelled.
[2018-09-27] MEDS ORDERED: MAGNESIUM SULF 50% (8.12 MEQ/2 ML-1 GM VIAL) IVPB ONE (17:20)
[2018-09-27] MEDS ORDERED: SODIUM PHOSPHATE - 15 MM in DEXTROSE 5%-WATER - 250 ML IVPB ONE (18:00)
[2018-09-27 19:29] LABS: ANION GAP 8 MMOL/L (8-16); CALCIUM 8.3 mg/dL (8.5-10.1); CHLORIDE 106 mmol/L (98-107); CO2 24 mmol/L (21-32); CREATININE 0.4 mg/dL (0.55-1.3); GLUCOSE,RANDOM 95 mg/dL (74-106); MAGNESIUM 1.8 mg/dL (1.8-2.4); POTASSIUM 3.1 mmol/L (3.5-5.1); SODIUM 138 mmol/L (136-145)
[2018-09-27 19:33] LABS: BLOOD UREA NITROGEN < 1.0 mg/dL (7-18)
[2018-09-27] MEDS ORDERED: CEFTRIAXONE 1 GM in DEXTROSE 5%-WATER - 50 ML IVPB SCH (20:00)
[2018-09-27] MEDS ORDERED: PT OWN MED DRAWER 7, Y5N ONE (21:20)
[2018-09-27] MEDS: POTASSIUM CHLORIDE 10 MEQ in DEXTROSE 5%-NORMAL SALINE 1,000 ML IVPB SCH (21:39)
[2018-09-28] MEDS ORDERED: CEFTRIAXONE 1 GM in DEXTROSE 5%-WATER - 50 ML IVPB SCH
[2018-09-28] MEDS: AMPICILLIN - 1 GM in SODIUM CHLORIDE 100 ML IVPB SCH ×4 (02:59→20:57)
[2018-09-28] MEDS: PROMETHAZINE HCL 25 MG SUPPOSITORY PR SCH ×3 (06:14→21:00)
[2018-09-28] MEDS: PYRIDOXINE HCL (B-6) 50 MG TABLET (FP) PO SCH ×3 (06:14→20:59)
[2018-09-28 07:50] LABS: BASO % 0.5 % (0-2.0); EOS % 1.4 % (0-4.5); HEMATOCRIT 28.7 % (32.4-45.2); HEMOGLOBIN 10.2 GM/dL (10.7-15.3); LYMPH % 26.9 % (8-40); MCH 31.2 pg (25.7-33.7); MCHC 35.7 g/dl (32.0-36.0); MEAN CELL VOLUME 87.5 fl (80-96); MEAN PLT VOLUME 9.1 fl (7.5-11.1); MONO % 8.7 % (3.8-10.2); NEUT % 62.5 % (42.8-82.8); PLATELET COUNT 177 K/MM3 (134-434); RBC 3.28 M/mm3 (3.60-5.2); RDW 14.2 % (11.6-15.6); WHITE BLOOD COUNT 6.5 K/mm3 (4.0-10.0)
[2018-09-28 08:07] LABS: ALBUMIN 2.7 g/dl (3.4-5.0); ALK PHOS 74 U/L (45-117); ANION GAP 7 MMOL/L (8-16); BILIRUBIN,TOTAL 0.9 mg/dL (0.2-1); CALCIUM 8.2 mg/dL (8.5-10.1); CHLORIDE 106 mmol/L (98-107); CO2 25 mmol/L (21-32); CREATININE 0.4 mg/dL (0.55-1.3); GLUCOSE,RANDOM 80 mg/dL (74-106); MAGNESIUM 1.9 mg/dL (1.8-2.4); PHOSPHOROUS 3.1 mg/dL (2.5-4.9); SGOT/AST 55 U/L (15-37); SGPT/ALT 150 U/L (13-61); SODIUM 139 mmol/L (136-145); TOT PROT 5.3 g/dl (6.4-8.2)
[2018-09-28 08:12] LABS: BLOOD UREA NITROGEN < 1.0 mg/dL (7-18)
[2018-09-28 08:13] LABS: POTASSIUM 2.9 mmol/L (3.5-5.1)
[2018-09-28] MEDS ORDERED: POTASSIUM CHLORIDE ORAL LIQUID 20 MEQ/15 ML PO ONE (09:19)
--- NOTE | 2018-09-28 09:23 | PN ---
Progress Note, Physician Chief Complaint: Pt feeling improved. Not as nauseated. Tolerating some clears. NO emesis today. - Current Medication List Current Medications: Active Medications Potassium Chloride 10 meq/ (Dextrose/Sodium Chloride) 1,005 mls @ 125 mls/hr IVPB ASDIR EVER Last Admin: 09/27/18 21:39 Dose: 125 mls/hr Ampicillin Sodium 1 gm/ Sodium (Chloride) 100 mls @ 200 mls/hr IVPB Q6H-IV EVER ; Protocol Last Admin: 09/28/18 02:59 Dose: 200 mls/hr Ondansetron HCl (Zofran Injection) 4 mg IM Q6H PRN PRN Reason: NAUSEA AND/OR VOMITING Last Admin: 09/27/18 20:41 Dose: 4 mg Promethazine HCl (Phenergan Suppository -) 25 mg AL TID [facility] Last Admin: 09/28/18 06:14 Dose: 25 mg Pyridoxine HCl (Vitamin B6 -) 25 mg PO TID [facility] Last Admin: 09/28/18 06:14 Dose: 25 mg Ranitidine HCl (Zantac -) 150 mg PO BID [facility] Last Admin: 09/27/18 21:41 Dose: 150 mg - Objective Vital Signs: Vital Signs Temperature 98.2 F 09/28/18 06:00 Pulse Rate 98 H 09/28/18 06:00 Respiratory Rate 20 09/28/18 06:00 Blood Pressure 111/54 L 09/28/18 06:00 O2 Sat by Pulse Oximetry (%) 99 09/27/18 21:00 Constitutional: Yes: Well Nourished, Calm Eyes: Yes: Conjunctiva Clear HENT: Yes: Atraumatic Neck: Yes: Supple Cardiovascular: Yes: Regular Rate and Rhythm Gastrointestinal: Yes: Soft Neurological: Yes: Alert, Oriented Psychiatric: Yes: Alert, Oriented Labs: CBC, BMP 09/28/18 06:45 09/28/18 06:45 Problem List - Problems (1) Hypokalemia Code(s): E87.6 - HYPOKALEMIA (2) Hyperemesis gravidarum Code(s): O21.0 - MILD HYPEREMESIS GRAVIDARUM Assessment/Plan Hypokalemia - added K+ into fluids last night, will give oral replacement dose now continue clears if tolerates, to consider transitioning to all PO meds today to see if can tolerate
[2018-09-28] MEDS: RANITIDINE HCL 150 MG TABLET (FP) PO SCH ×2 (09:31→20:59)
--- NOTE | 2018-09-28 09:31 | PN.GI ---
GI Progress Note Subjective: No acute events No vomiting Still with some nausea Did not tolerate Ensure Clear: gave her reflux symptoms - Objective Vital Signs: Vital Signs Temperature 98.2 F 09/28/18 06:00 Pulse Rate 98 H 09/28/18 06:00 Respiratory Rate 20 09/28/18 06:00 Blood Pressure 111/54 L 09/28/18 06:00 O2 Sat by Pulse Oximetry (%) 99 09/27/18 21:00 Constitutional: Calm Eyes: No: Sclera Icterus Cardiovascular: Yes: Regular Rate and Rhythm Respiratory: Yes: CTA Bilaterally Gastrointestinal Inspection: No: Distention ...Auscultate: Yes: Normoactive Bowel Sounds ...Palpate: Yes: Soft. No: Hepatomegaly, Splenomegaly, Tenderness Edema: No (No LE edema) Neurological: Yes: Alert Labs: CBC, BMP 09/28/18 06:45 09/28/18 06:45 Hepatic Panel Total Bilirubin 0.9 mg/dL (0.2-1) 09/28/18 06:45 AST 55 U/L (15-37) H 09/28/18 06:45 ALT 150 U/L (13-61) H 09/28/18 06:45 Alkaline Phosphatase 74 U/L (45-117) 09/28/18 06:45 Albumin 2.7 g/dl (3.4-5.0) L 09/28/18 06:45 Problem List - Problems (1) Hyperemesis gravidarum Assessment/Plan: Clinically improved, LFTs improved No vomiting Advance to full liquids F/U screening hepatitis serologies B6, Ranitidine, antiemetics per checking clerk Code(s): O21.0 - MILD HYPEREMESIS GRAVIDARUM
[2018-09-28] MEDS ORDERED: MAGNESIUM SULF 50% (8.12 MEQ/2 ML-1 GM VIAL) IVPB ONE (09:37)
[2018-09-28] MEDS: KCL 10 MEQ IVPB 10 MEQ/100 ML INFUS.BAG IVPB SCH ×3 (10:48→17:51)
[2018-09-28] MEDS: POTASSIUM CHLORIDE TABS 20 MEQ TABLET.ER (FP) PO ONE ×2 (10:48→13:04)
--- NOTE | 2018-09-28 11:49 | PN ---
Physical Exam: SUBJECTIVE: Patient seen and examined at bedside. No acute events overnight. Pt denies n/v, c/d, cp, sob. Tolerating clears. OBJECTIVE: Vital Signs Temperature 98.2 F 09/28/18 06:00 Pulse Rate 94 H 09/28/18 10:00 Respiratory Rate 18 09/28/18 10:00 Blood Pressure 103/55 L 09/28/18 10:00 O2 Sat by Pulse Oximetry (%) 99 09/27/18 21:00 GENERAL: Awake, alert, and fully oriented, in no acute distress. LUNGS: Breath sounds equal, clear to auscultation bilaterally. No wheezes, and no crackles. No accessory muscle use. HEART: Regular rate and rhythm, normal S1 and S2. Systolic flow murmur best heard at the LUSB. ABDOMEN: Soft, nontender, Gravid abdomen, normoactive bowel sounds, no guarding , no rebound, no masses. No hepatomegaly or splenomegaly. LOWER EXTREMITIES: 2+ pulses, warm, well-perfused. No calf tenderness. No peripheral edema. NEUROLOGICAL: Cranial nerves II-X intact. Normal speech. PSYCHIATRIC: Cooperative. Good eye contact. Appropriate mood and affect. SKIN: Warm, dry, normal turgor, no rashes or lesions noted. Laboratory Results - last 24 hr 09/27/18 09/28/18 09/28/18 18:00 06:45 06:45 WBC 6.5 RBC 3.28 L Hgb 10.2 L Hct 28.7 L MCV 87.5 MCH 31.2 MCHC 35.7 RDW 14.2 Plt Count 177 MPV 9.1 Absolute Neuts (auto) 4.1 Neutrophils % 62.5 Lymphocytes % 26.9 D Monocytes % 8.7 Eosinophils % 1.4 Basophils % 0.5 Nucleated RBC % 0 Sodium 138 139 Potassium 3.1 L 2.9 L* Chloride 106 106 Carbon Dioxide 24 25 Anion Gap 8 7 L BUN < 1.0 L* < 1.0 L* Creatinine 0.4 L 0.4 L Est GFR (CKD-EPI)AfAm 166.61 166.61 Est GFR (CKD-EPI)NonAf 143.75 143.75 Random Glucose 95 80 Calcium 8.3 L 8.2 L Phosphorus 3.1 Magnesium 1.8 1.9 Total Bilirubin 0.9 AST 55 H ALT 150 H Alkaline Phosphatase 74 Total Protein 5.3 L Albumin 2.7 L Active Medications Potassium Chloride 10 meq/ (Dextrose/Sodium Chloride) 1,005 mls @ 125 mls/hr IVPB ASDIR [facility] Last Admin: 09/28/18 14:35 Dose: 125 mls/hr Ampicillin Sodium 1 gm/ Sodium (Chloride) 100 mls @ 200 mls/hr IVPB Q6H-IV EVER ; Protocol Last Admin: 09/28/18 14:36 Dose: 200 mls/hr Ondansetron HCl (Zofran -) 8 mg PO Q8H PRN PRN Reason: NAUSEA AND/OR VOMITING Ondansetron HCl (Zofran Injection) 4 mg IM Q6H PRN PRN Reason: NAUSEA AND/OR VOMITING Promethazine HCl (Phenergan Suppository -) 25 mg IA TID [facility] Last Admin: 09/28/18 14:48 Dose: 25 mg Pyridoxine HCl (Vitamin B6 -) 25 mg PO TID [facility] Last Admin: 09/28/18 14:48 Dose: 25 mg Ranitidine HCl (Zantac -) 150 mg PO BID [facility] Last Admin: 09/28/18 09:31 Dose: 150 mg ASSESSMENT/PLAN: 28 yo @ 13 wks w/ no PMH admitted for hyperemesis gravidarum. Medicine consulted for the management of hypokalemia in the setting of vomiting. Patient feels better on interview, states she was able to tolerate CLD earlier. #hypokalemia 2/2 hyperemesis gravidarum -Replete K+ PRN -recheck BMP at 4pm -Zofran PRN for nausea #dysuria in ; 2/2 possible UTI -IV Ceftriaxone given; switch to Ampicillin -UCx pending #systolic flow murmur -likely physiologic in the setting of -no further workup at this time -consider cardio follow up as outpatient if murmur persists after #Transaminitis; possibly 2/2 vs obstructive in nature -LFTs improving -seen by GI -f/u hepatitis panel Visit type - Emergency Visit Emergency Visit: Yes ED Registration Date: 09/27/18 Care time: The patient presented to the Emergency Department on the above date and was hospitalized for further evaluation of their emergent condition. - New Patient This patient is new to me today: Yes Date on this admission: 09/30/18 - Critical Care Critical Care patient: No
[2018-09-28] MEDS ORDERED: PT OWN MED DRAWER 7, Y5N ONE ×3 (14:24→20:47)
[2018-09-28] MEDS: POTASSIUM CHLORIDE 10 MEQ in DEXTROSE 5%-NORMAL SALINE 1,000 ML IVPB SCH ×2 (14:35→20:00)
[2018-09-28] MEDS ORDERED: ONDANSETRON 8 MG TABLET (FP) PO PRN (14:43)
[2018-09-28] MEDS ORDERED: ONDANSETRON 4 MG/2 ML VIAL IM PRN (14:44)
--- NOTE | 2018-09-28 16:04 | PN ---
Teaching Attending Note Name of Resident: Myrtle Pike ATTENDING PHYSICIAN STATEMENT I saw and evaluated the patient. I reviewed the resident's note and discussed the case with the resident. I agree with the resident's findings and plan as documented. SUBJECTIVE: Feels better. Nausea/Vomiting improved. Mild generalized abdominal discomfort. No fever/chills. OBJECTIVE: Afebrile, Hemodynamically Stable. Last Vital Signs Temp Pulse Resp BP Pulse Ox 98.2 F 94 H 18 103/55 L 99 09/28/18 06:00 09/28/18 10:00 09/28/18 10:00 09/28/18 10:00 09/27/18 21:00 Heart - S1, S2, RRR Lungs -clear to auscultation Abdomen - gravid abdomen. Soft. Mild generalized tenderness. Bowel Sounds normal. Extremities - No edema, no calf tenderness. Laboratory Results - last 24 hr 09/27/18 09/28/18 09/28/18 18:00 06:45 06:45 WBC 6.5 RBC 3.28 L Hgb 10.2 L Hct 28.7 L MCV 87.5 MCH 31.2 MCHC 35.7 RDW 14.2 Plt Count 177 MPV 9.1 Absolute Neuts (auto) 4.1 Neutrophils % 62.5 Lymphocytes % 26.9 D Monocytes % 8.7 Eosinophils % 1.4 Basophils % 0.5 Nucleated RBC % 0 Sodium 138 139 Potassium 3.1 L 2.9 L* Chloride 106 106 Carbon Dioxide 24 25 Anion Gap 8 7 L BUN < 1.0 L* < 1.0 L* Creatinine 0.4 L 0.4 L Est GFR (CKD-EPI)AfAm 166.61 166.61 Est GFR (CKD-EPI)NonAf 143.75 143.75 Random Glucose 95 80 Calcium 8.3 L 8.2 L Phosphorus 3.1 Magnesium 1.8 1.9 Total Bilirubin 0.9 AST 55 H ALT 150 H Alkaline Phosphatase 74 Total Protein 5.3 L Albumin 2.7 L Current Medications Generic Name Dose Route Start Last Admin Trade Name Freq PRN Reason Stop Dose Admin Potassium Chloride 10 meq/ 1,005 mls @ 125 mls/hr 09/27/18 20:00 09/28/18 14: 35 Dextrose/Sodium Chloride IVPB 125 mls/hr ASDIR EVER Administration Ampicillin Sodium 1 gm/ Sodium 100 mls @ 200 mls/hr 09/28/18 03:00 09/28/18 14:36 Chloride IVPB 200 mls/hr Q6H-IV EVER Administration Protocol Ondansetron HCl 8 mg 09/28/18 14:43 Zofran - PO Q8H PRN NAUSEA AND/OR VOMITING Ondansetron HCl 4 mg 09/28/18 14:44 Zofran Injection IM Q6H PRN NAUSEA AND/OR VOMITING Promethazine HCl 25 mg 09/27/18 06:00 09/28/18 14:48 Phenergan Suppository - [place] 25 mg TID EVER Administration Pyridoxine HCl 25 mg 09/27/18 14:00 09/28/18 14:48 Vitamin B6 - PO 25 mg TID EVER Administration Ranitidine HCl 150 mg 09/27/18 10:00 09/28/18 09:31 Zantac - PO 150 mg BID EVER Administration ASSESSMENT AND PLAN: 28 year old female, 13 weeks , admitted with hyperemesis gravidum. Medicine service consulted for Hypokalemia of 3.1. 1. Hypokalemia and Hypophosphatemia secondary to gastric fluid loss due to vomiting Persisting hypokalemia - will replete. Phosphate repleted. Repeat K level today at 4pm. 2. Hyperemesis Gravidum Management with Antiemetics as per OBGYN 3. Elevated Transaminases and reported bloody vomitus - improving LFTs - will defer to GI for further Ix/Management. 4. Possible UTI - Ceftriaxone changed to Ampicillin. Urine Cx pending. Afebrile/ Hemodynamically Stable.
[2018-09-28 18:52] LABS: ANION GAP 7 MMOL/L (8-16); CALCIUM 8.3 mg/dL (8.5-10.1); CHLORIDE 107 mmol/L (98-107); CO2 25 mmol/L (21-32); CREATININE 0.3 mg/dL (0.55-1.3); GLUCOSE,RANDOM 67 mg/dL (74-106); POTASSIUM 3.6 mmol/L (3.5-5.1); SODIUM 139 mmol/L (136-145)
[2018-09-28 18:55] LABS: BLOOD UREA NITROGEN < 1.0 mg/dL (7-18)
--- NOTE | 2018-09-28 21:12 | PN ---
Progress Note, Physician History of Present Illness: Pt seen/evaluated. Feeling nauseated. Still no emesis. Tolerating small amounts of full liquid diet. Laboratory values normalizing. - Current Medication List Current Medications: Active Medications Potassium Chloride 10 meq/ (Dextrose/Sodium Chloride) 1,005 mls @ 125 mls/hr IVPB ASDIR [facility] Last Admin: 09/28/18 20:00 Dose: Not Given Ampicillin Sodium 1 gm/ Sodium (Chloride) 100 mls @ 200 mls/hr IVPB Q6H-IV EVER ; Protocol Last Admin: 09/28/18 20:57 Dose: 200 mls/hr Ondansetron HCl (Zofran -) 8 mg PO Q8H PRN PRN Reason: NAUSEA AND/OR VOMITING Ondansetron HCl (Zofran Injection) 4 mg IM Q6H PRN PRN Reason: NAUSEA AND/OR VOMITING Promethazine HCl (Phenergan Suppository -) 25 mg AR TID [facility] Last Admin: 09/28/18 21:00 Dose: 25 mg Pyridoxine HCl (Vitamin B6 -) 25 mg PO TID [facility] Last Admin: 09/28/18 20:59 Dose: 25 mg Ranitidine HCl (Zantac -) 150 mg PO BID [facility] Last Admin: 09/28/18 20:59 Dose: 150 mg - Objective Vital Signs: Vital Signs Temperature 98.2 F 09/28/18 06:00 Pulse Rate 94 H 09/28/18 10:00 Respiratory Rate 18 09/28/18 10:00 Blood Pressure 103/55 L 09/28/18 10:00 O2 Sat by Pulse Oximetry (%) 99 09/27/18 21:00 Constitutional: Yes: Well Nourished, No Distress, Calm HENT: Yes: Atraumatic, Normocephalic Cardiovascular: Yes: Regular Rate and Rhythm Gastrointestinal: Yes: Normal Bowel Sounds, Soft Neurological: Yes: Alert, Oriented Psychiatric: Yes: Alert, Oriented Labs: CBC, BMP 09/28/18 06:45 09/28/18 17:30 Problem List - Problems (1) Hypokalemia Code(s): E87.6 - HYPOKALEMIA (2) Hyperemesis gravidarum Code(s): O21.0 - MILD HYPEREMESIS GRAVIDARUM Assessment/Plan Hypokalemia resolved tolerated some full liquid diet continue phenergan AR, Ranitidine and B6 - tolerating all medications in non IV form if all lab values normalize/stable in a.m. and still able to tolerate full liquids or even some bland solids (crackers/toast) will plan to discharge home
[2018-09-28] MEDS: DEXTROSE 5%-LACTATED RINGERS 1,000 ML IV SCH (21:35)
[2018-09-29] MEDS: AMPICILLIN - 1 GM in SODIUM CHLORIDE 100 ML IVPB SCH ×4 (02:24→20:12)
[2018-09-29] MEDS: PYRIDOXINE HCL (B-6) 50 MG TABLET (FP) PO SCH ×3 (05:47→21:10)
[2018-09-29] MEDS: DEXTROSE 5%-LACTATED RINGERS 1,000 ML IV SCH ×2 (05:47→20:15)
[2018-09-29] MEDS: PROMETHAZINE HCL 25 MG SUPPOSITORY PR SCH ×3 (05:48→21:10)
[2018-09-29 08:20] LABS: ANION GAP 6 MMOL/L (8-16); CHLORIDE 106 mmol/L (98-107); CO2 25 mmol/L (21-32); CREATININE 0.4 mg/dL (0.55-1.3); GLUCOSE,RANDOM 78 mg/dL (74-106); MAGNESIUM 1.8 mg/dL (1.8-2.4); POTASSIUM 3.3 mmol/L (3.5-5.1); SODIUM 136 mmol/L (136-145)
[2018-09-29 08:37] LABS: BLOOD UREA NITROGEN < 1.0 mg/dL (7-18)
[2018-09-29] MEDS ORDERED: KCL 10 MEQ IVPB 10 MEQ/100 ML INFUS.BAG IVPB SCH (08:45)
[2018-09-29] MEDS ORDERED: PT OWN MED DRAWER 7, Y5N ONE ×3 (10:33→19:51)
[2018-09-29] MEDS: RANITIDINE HCL 150 MG TABLET (FP) PO SCH ×2 (10:37→21:12)
[2018-09-29] MEDS ORDERED: POTASSIUM CHLORIDE ORAL LIQUID 20 MEQ/15 ML PO ONE (12:06)
--- NOTE | 2018-09-29 12:12 | PN ---
Physical Exam: SUBJECTIVE: Patient seen and examined at bedside. Feeling well, has been tolerating diet without nausea. OBJECTIVE: Vital Signs Period Temp Pulse Resp BP Sys/Emerson Pulse Ox Last 24 Hr 97.7 F-98.7 F 82-90 15-20 102-123/50-70 99-99 GENERAL: The patient is AAO x3. in NAD HEAD: Normal with no signs of trauma. EYES: PERRL, extraocular movements intact, sclera anicteric, conjunctiva clear. ENT: Ears normal, nares patent, oropharynx clear without exudates, moist mucous membranes. NECK: Trachea midline, supple. LUNGS: Breath sounds equal, clear to auscultation bilaterally, no wheezes, no crackles HEART: Regular rate and rhythm, S1, S2 without murmur, rub or gallop. ABDOMEN: Soft, nontender, nondistended, normoactive bowel sounds EXTREMITIES: 2+ pt pulses, warm, well-perfused, no edema. NEUROLOGICAL: Cranial nerves II through XII grossly intact. PSYCH: Normal mood, normal affect. SKIN: Warm, dry, normal turgor Laboratory Results - last 24 hr 09/28/18 09/28/18 09/29/18 06:45 17:30 07:00 Sodium 139 136 Potassium 3.6 3.3 L Chloride 107 106 Carbon Dioxide 25 25 Anion Gap 7 L 6 L BUN < 1.0 L* < 1.0 L* Creatinine 0.3 L 0.4 L Est GFR (CKD-EPI)AfAm 183.15 166.61 Est GFR (CKD-EPI)NonAf 158.02 143.75 Random Glucose 67 L 78 Calcium 8.3 L 8.0 L Magnesium 1.8 Hep C Ab Diagnostic <0.1 Microbiology 09/27/18 17:00 Urine - Urine Clean Catch Urine Culture - Final NO GROWTH OBTAINED ASSESSMENT/PLAN: 28 yo @ 13 wks w/ no PMH admitted for hyperemesis gravidarum. Medicine consulted for the management of hypokalemia in the setting of vomiting. #hypokalemia 2/2 hyperemesis gravidarum -K 3.3. will replete with 40meq Kcl PO -recheck level tomorrow #UTI- resolved -Ucx returned (-). recommend d/c ampicillin #systolic flow murmur -physiologic in the setting of -consider cardio f/u as outpatient if murmur persists after #Transaminitis; possible 2/2 vs obstructive in nature -monitor trend -hepatitis serologies pending. -seen by GI #F/E/N IV d5LR 125 cc/hr. can dc once tolerating diet consistently continue to follow lytes full liq diet. recommend advancement #PPX BELTRAN's #Dispo monitoring on med-surg Thank you for this consultative opportunity. We will follow the patient. Visit type - Emergency Visit Emergency Visit: No - New Patient This patient is new to me today: Yes Date on this admission: 09/29/18 - Critical Care Critical Care patient: No
--- NOTE | 2018-09-29 12:35 | PN ---
Teaching Attending Note Name of Resident: Pat Singleton ATTENDING PHYSICIAN STATEMENT I saw and evaluated the patient. I reviewed the resident's note and discussed the case with the resident. I agree with the resident's findings and plan as documented. SUBJECTIVE: Patient has no complaints. She is tolerating a diet. OBJECTIVE: Vital Signs Period Temp Pulse Resp BP Sys/Emerson Pulse Ox Last 24 Hr 97.7 F-98.7 F 82-90 15-20 102-123/50-70 99-99 HEART: S1S2, RRR LUNGS: Clear ABDOMEN: Soft, non-tender, non-distended, normal BS EXTREMITIES: No edema Laboratory Results - last 24 hr 09/28/18 09/28/18 09/29/18 06:45 17:30 07:00 Sodium 139 136 Potassium 3.6 3.3 L Chloride 107 106 Carbon Dioxide 25 25 Anion Gap 7 L 6 L BUN < 1.0 L* < 1.0 L* Creatinine 0.3 L 0.4 L Est GFR (CKD-EPI)AfAm 183.15 166.61 Est GFR (CKD-EPI)NonAf 158.02 143.75 Random Glucose 67 L 78 Calcium 8.3 L 8.0 L Magnesium 1.8 Hep C Ab Diagnostic <0.1 Current Medications Generic Name Dose Route Start Last Admin Trade Name Freq PRN Reason Stop Dose Admin Ampicillin Sodium 1 gm/ Sodium 100 mls @ 200 mls/hr 09/28/18 03:00 09/29/18 11:00 Chloride IVPB 200 mls/hr Q6H-IV EVER Administration Protocol Dextrose/Lactated Ringer's 1,000 mls @ 125 mls/hr 09/28/18 21:15 09/29/18 05: 47 D5-Lr - IV 125 mls/hr ASDIR EVER Administration Potassium Chloride 10 meq in 100 mls @ 100 mls/hr 09/29/18 13:00 Potassium Chloride 10 Meq Premix Ivpb - IVPB 09/29/18 14:59 Q60M EVER Ondansetron HCl 8 mg 09/28/18 14:43 Zofran - PO Q8H PRN NAUSEA AND/OR VOMITING Ondansetron HCl 4 mg 09/28/18 14:44 Zofran Injection IM Q6H PRN NAUSEA AND/OR VOMITING Promethazine HCl 25 mg 09/27/18 06:00 09/29/18 05:48 Phenergan Suppository - FL 25 mg TID EVER Administration Pyridoxine HCl 25 mg 09/27/18 14:00 09/29/18 05:47 Vitamin B6 - PO 25 mg TID EVER Administration Ranitidine HCl 150 mg 09/27/18 10:00 09/29/18 10:37 Zantac - PO 150 mg BID EVER Administration ASSESSMENT AND PLAN: This is a 28 year old 13 week woman with a history of hyperemesis gravidarum who presented to the ED with nausea and vomiting. 1. Hypokalemia - Vomiting resolved - Continue to replete potassium as needed 2. Hypophosphatemia - Improved 3. Dehydration secondary to vomiting - Improved 4. Hyperemesis gravidum - Improved - Tolerating full liquids 5. Possible UTI - On ampicillin - Dysuria improved - Urine culture negative, however was obtained after antibiotics given - Would complete short course of ampicillin 6. Hepatic transaminitis - Improving - Hepatitis C negative - Hep A Ab, HBsAb, HBcAb pending
[2018-09-29] MEDS: KCL 10 MEQ IVPB 10 MEQ/100 ML INFUS.BAG IVPB SCH ×2 (14:24→15:39)
[2018-09-29 16:13] LABS: CALCIUM 8.5 mg/dL (8.5-10.1); CREATININE 0.4 mg/dL (0.55-1.3); POTASSIUM 3.6 mmol/L (3.5-5.1)
[2018-09-29 16:18] LABS: BLOOD UREA NITROGEN 1.2 mg/dL (7-18)
[2018-09-30] MEDS ORDERED: ONDANSETRON 4 MG/2 ML VIAL IVPB PRN (01:07)
[2018-09-30] MEDS ORDERED: PT OWN MED DRAWER 7, Y5N ONE (05:38)
[2018-09-30] MEDS: PROMETHAZINE HCL 25 MG SUPPOSITORY PR SCH ×2 (05:39→14:36)
[2018-09-30] MEDS: PYRIDOXINE HCL (B-6) 50 MG TABLET (FP) PO SCH ×2 (05:39→14:36)
[2018-09-30 06:41] LABS: HEP B CORE AB, TOT Negative (Negative)
[2018-09-30 08:52] LABS: ALBUMIN 2.7 g/dl (3.4-5.0); ALK PHOS 69 U/L (45-117); ANION GAP 6 MMOL/L (8-16); BILIRUBIN,TOTAL 0.7 mg/dL (0.2-1); CALCIUM 8.4 mg/dL (8.5-10.1); CHLORIDE 105 mmol/L (98-107); CO2 26 mmol/L (21-32); CREATININE 0.3 mg/dL (0.55-1.3); GLUCOSE,RANDOM 86 mg/dL (74-106); MAGNESIUM 1.7 mg/dL (1.8-2.4); PHOSPHOROUS 3.1 mg/dL (2.5-4.9); POTASSIUM 3.4 mmol/L (3.5-5.1); SGOT/AST 22 U/L (15-37); SGPT/ALT 98 U/L (13-61); SODIUM 138 mmol/L (136-145); TOT PROT 5.3 g/dl (6.4-8.2)
[2018-09-30 08:55] LABS: BLOOD UREA NITROGEN < 1.0 mg/dL (7-18)
[2018-09-30] MEDS: RANITIDINE HCL 150 MG TABLET (FP) PO SCH (09:05)
--- NOTE | 2018-09-30 09:42 | PN ---
Progress Note, Physician Chief Complaint: Pt with some emesis overnight. Took zofran last night which improved symptoms. No emesis this a.m., tolerating small amt of full liquid diet. - Current Medication List Current Medications: Active Medications Dextrose/Lactated Ringer's (D5-Lr -) 1,000 mls @ 125 mls/hr IV ASDIR [facility] Last Admin: 09/29/18 20:15 Dose: 125 mls/hr Ondansetron HCl (Zofran -) 8 mg PO Q8H PRN PRN Reason: NAUSEA AND/OR VOMITING Ondansetron HCl (Zofran Injection) 4 mg IVPB Q6H PRN PRN Reason: NAUSEA AND/OR VOMITING Promethazine HCl (Phenergan Suppository -) 25 mg OR TID [facility] Last Admin: 09/30/18 05:39 Dose: 25 mg Pyridoxine HCl (Vitamin B6 -) 25 mg PO TID [facility] Last Admin: 09/30/18 05:39 Dose: 25 mg Ranitidine HCl (Zantac -) 150 mg PO BID [facility] Last Admin: 09/30/18 09:05 Dose: 150 mg - Objective Vital Signs: Vital Signs Temperature 98.6 F 09/30/18 05:50 Pulse Rate 84 09/30/18 05:50 Respiratory Rate 20 09/30/18 05:50 Blood Pressure 105/62 09/30/18 05:50 O2 Sat by Pulse Oximetry (%) 98 09/29/18 21:00 Constitutional: Yes: Well Nourished, No Distress Eyes: Yes: Conjunctiva Clear HENT: Yes: Atraumatic Cardiovascular: Yes: WNL Respiratory: Yes: Regular Gastrointestinal: Yes: Soft. No: Tenderness Neurological: Yes: Alert, Oriented Psychiatric: Yes: Alert, Oriented Labs: CBC, BMP 09/28/18 06:45 09/30/18 07:50 Problem List - Problems (1) Hypokalemia Code(s): E87.6 - HYPOKALEMIA (2) Hyperemesis gravidarum Code(s): O21.0 - MILD HYPEREMESIS GRAVIDARUM Assessment/Plan K+ = 3.4 this a.m., BUN still low tolerated some full liquid diet continue phenergan OR, Ranitidine and B6, encouraged pt to take Zofran as well as it seems to improve her symptoms discussed Risks/benefits of zofran in replete K+ repeat labs this afternoon
[2018-09-30] MEDS ORDERED: MAGNESIUM SULF 50% (8.12 MEQ/2 ML-1 GM VIAL) IVPB ONE (09:43)
[2018-09-30] MEDS ORDERED: KCL 10 MEQ IVPB 10 MEQ/100 ML INFUS.BAG IVPB SCH (09:45)
[2018-09-30] MEDS ORDERED: POTASSIUM CHLORIDE TABS 20 MEQ TABLET.ER (FP) PO ONE (10:15)
[2018-09-30 11:03] VITALS: BP 116/81; PULSE 87; TEMP 97.9
[2018-09-30] MEDS: KCL 10 MEQ IVPB 10 MEQ/100 ML INFUS.BAG IVPB SCH ×2 (12:13→13:07)
--- NOTE | 2018-09-30 14:28 | PN ---
Progress Note, Physician Chief Complaint: nausea and vomiting History of Present Illness: hungry, wants to eat, vomited after soup yesterday - Current Medication List Current Medications: Active Medications Dextrose/Lactated Ringer's (D5-Lr -) 1,000 mls @ 125 mls/hr IV ASDIR [facility] Last Admin: 09/29/18 20:15 Dose: 125 mls/hr Ondansetron HCl (Zofran -) 8 mg PO Q8H PRN PRN Reason: NAUSEA AND/OR VOMITING Ondansetron HCl (Zofran Injection) 4 mg IVPB Q6H PRN PRN Reason: NAUSEA AND/OR VOMITING Promethazine HCl (Phenergan Suppository -) 25 mg IN TID [facility] Last Admin: 09/30/18 05:39 Dose: 25 mg Pyridoxine HCl (Vitamin B6 -) 25 mg PO TID [facility] Last Admin: 09/30/18 05:39 Dose: 25 mg Ranitidine HCl (Zantac -) 150 mg PO BID [facility] Last Admin: 09/30/18 09:05 Dose: 150 mg - Objective Vital Signs: Vital Signs Temperature 97.9 F 09/30/18 11:00 Pulse Rate 87 09/30/18 11:00 Respiratory Rate 20 09/30/18 11:00 Blood Pressure 116/81 09/30/18 11:00 O2 Sat by Pulse Oximetry (%) 95 09/30/18 11:00 Constitutional: Yes: Well Nourished, No Distress, Calm Cardiovascular: Yes: WNL, Regular Rate and Rhythm Respiratory: Yes: WNL, Regular, CTA Bilaterally Gastrointestinal: Yes: WNL, Normal Bowel Sounds, Soft Musculoskeletal: Yes: WNL Extremities: Yes: WNL Labs: CBC, BMP 09/28/18 06:45 09/30/18 07:50 Problem List - Problems (1) Hyperemesis gravidarum Code(s): O21.0 - MILD HYPEREMESIS GRAVIDARUM (2) Hypokalemia Code(s): E87.6 - HYPOKALEMIA (3) Transaminitis Code(s): R74.0 - NONSPEC ELEV OF LEVELS OF TRANSAMNS & LACTIC ACID DEHYDRGNSE Assessment/Plan 28 year old female, 13 weeks , admitted with hyperemesis gravidum Medicine service consulted for Hypokalemia 1. Hypokalemia/Hypophosphatemia -lytes being replaced, monitor 2. Hyperemesis Gravidum -antiemetics per surveillance agent 3. Transaminitis -improving -Hep A positive, unsure if IgM or IgG, call made to lab -discussed with GI, supportive care 4) UTI, urine cx is negative -would dc abx
[2018-09-30 16:38] LABS: CALCIUM 8.5 mg/dL (8.5-10.1); CREATININE 0.4 mg/dL (0.55-1.3); POTASSIUM 3.7 mmol/L (3.5-5.1)
[2018-09-30 16:43] LABS: BLOOD UREA NITROGEN 1.2 mg/dL (7-18)
--- NOTE | 2018-09-30 16:49 | DS ---
Physical Examination Vital Signs: Vital Signs Temperature 97.9 F 09/30/18 11:00 Pulse Rate 87 09/30/18 11:00 Respiratory Rate 20 09/30/18 11:00 Blood Pressure 116/81 09/30/18 11:00 O2 Sat by Pulse Oximetry (%) 95 09/30/18 11:00 Constitutional: Yes: Well Nourished, No Distress, Calm HENT: Yes: Atraumatic Neck: Yes: Supple Cardiovascular: Yes: Regular Rate and Rhythm Respiratory: Yes: WNL Gastrointestinal: Yes: Normal Bowel Sounds Musculoskeletal: Yes: WNL Extremities: Yes: WNL Neurological: Yes: Alert, Oriented Psychiatric: Yes: Alert, Oriented Labs: CBC, BMP 09/28/18 06:45 09/30/18 15:10 Discharge Summary Reason For Visit: URINARY TRACT INFECTION, HYPEREMESIS GRAVIDARUM Current Active Problems Hyperemesis gravidarum (Acute) Hypokalemia (Acute) Transaminitis (Acute) UTI (urinary tract infection) (Acute) Hospital Course: Pt admitted on 09/27/18 for hyperemesis gravidarum. Upon admission patient had electrolyte abnormalities (hypokalemia as well as low potassium). She was admitted, given antiemetics and IV fluids. Upon laboratory evaluation was found to have elevated LFTs, GI was consulted. On hospitdal day 4 the patient was able to tolerate full liquid diet, electrolyte imbalance had resolved. Some lab studies regarding her elevated LFTs (heptatisi workup) was pending, but can follow up as outpatient. Pt instructed to follow up in office for repeat labs within 48 hours. Condition: Fair - Instructions Diet, Activity, Other Instructions: Dr Dewey and Dr Badillo IMPORTANT: Please follow ALL basic instructions AND any other instructions that have been marked with an X: Hydration and Elimination: _X_ Try to drink at least eight 8-ounce glasses of water a day _X_ Empty bladder frequently. Be sure to go to the bathroom when you first feel the urge. Don't wait! Notify your doctor for any of the following signs/symptoms: _X_ Water gushing or leaking from the vagina; report amount, color, and odor to MD _X_ Increased vaginal discharge and/or odorous discharge _X_ Vaginal bleeding: spotting, flow, or clots _X_ Worsening nausea, or vomiting _X_ Diarrhea (frequent loose/runny stools) _X_ Unrelieved headache _X_ Vision changes: blurriness, spots, flashes of light _X_ Mental confusion, or seizure _X_ Shortness of breath or difficulty breathing [X ] Signs of bladder infection: Urgency, increased urination frequency, pain and/or burning when urinating Please call the OBGYN officr monday to make an appointment this week. Disposition: HOME - Home Medications Comprehensive Discharge Medication List: Ambulatory Orders Ondansetron [Zofran Odt -] 4 mg SL TID PRN #30 od.tablet 09/14/18 Promethazine HCl [Phenergan Suppository -] 25 mg RC TID #3 supp.rect 09/28/18 Pyridoxine HCl (Vitamin B6) [Vitamin B-6] 25 mg PO TID 30 Days tablet 09/28/18 Ranitidine [Zantac -] 150 mg PO BID #60 tablet 09/28/18
[2018-10-02 01:08] LABS: HEP A AB, IGM Negative (Negative)
== END 2018-09-30 17:35 | disposition home or self-care (01) | DRG 833 ==
LOC: JER 20:05 → JERBED 09-27 00:13 → J6S 09-27 03:33
PROVIDERS: ADMIT Obstetrics & Gynecology; ATTEND Obstetrics & Gynecology
DX: O23.41 Unspecified infection of urinary tract in pregnancy, first trimester (principal); O21.1 Hyperemesis gravidarum with metabolic disturbance; Z3A.13 13 weeks gestation of pregnancy; O26.891 Other specified pregnancy related conditions, first trimester; E87.6 Hypokalemia; E83.39 Other disorders of phosphorus metabolism; R74.0 Nonspecific elevation of levels of transaminase and lactic acid dehydrogenase [LDH]; E86.0 Dehydration
CPT/HCPCS: 36415; 76705-TC; 76815; 80048; 80053; 81003; 83735; 84100; 84702; 85025; 86704; 86706; 86708; 86803; 87086; 87340; 99284-25; J7030

== ENCOUNTER 2018-11-11 22:47 | Inpatient (IN) | payer BC ==
[2018-11-11 22:56] VITALS: BMI 25.9
--- NOTE | 2018-11-11 23:39 | PDOC ---
History of Present Illness - General History Source: Patient Exam Limitations: No Limitations - History of Present Illness Initial Comments: 11/11/18 23:31 Patient is a 28 year old female who is 19+ weeks G1 PO LMP 06/28/18 c/o epigastric pain with nausea and vomiting since 3 days. Patient states pain is stabbing 8/10, nonradiating. States has been unable to sleep do to the pain. States has been vomiting since yesterday, vomiting clots of blood. Has had hyperemesis throughout this . Denies any fever, chills, dysuria. Patient was recently admitted to the hospital for hyperemesis and for elevated liver enzymes. Review of the records show that at the time ultrasound showed some sludge. OBS/SUPERVISOR ROUGH END: Dr. Badillo PSOCHX: neg etoh, neg cig, neg drug ALL: Tylenol swelling GENERAL/CONSTITUTIONAL: No fever or chills. No weakness. No weight change. HEAD, EYES, EARS, NOSE AND THROAT: No change in vision. No ear pain or discharge. No sore throat. CARDIOVASCULAR: No chest pain or shortness of breath. RESPIRATORY: No cough, wheezing, or hemoptysis. GASTROINTESTINAL: (+) nausea, vomiting, (-) diarrhea or constipation. No rectal bleeding. GENITOURINARY: No dysuria, frequency, or change in urination. MUSCULOSKELETAL: No joint or muscle swelling or pain. No neck or back pain. SKIN AND BREASTS: No rash or easy bruising. NEUROLOGIC: (+) headache, (-) vertigo, loss of consciousness, or loss of sensation. PSYCHIATRIC: No depression or anxiety. ENDOCRINE: No increased thirst. No abnormal weight change. HEMATOLOGIC/LYMPHATIC: No anemia, easy bleeding, or history of blood clots. ALLERGIC/IMMUNOLOGIC: No hives or skin allergy. No latex allergy. GENERAL: The patient is awake, alert, and fully oriented, in no acute distress. HEAD: Normal with no signs of trauma. EYES: Pupils equal, round and reactive to light, extraocular movements intact, sclera anicteric, conjunctiva clear. ENT: Ears normal, nares patent, oropharynx clear without exudates. Moist mucous membranes. NECK: Normal range of motion, supple without lymphadenopathy, JVD, or masses. LUNGS: Breath sounds equal, clear to auscultation bilaterally. No wheezes, and no crackles. HEART: Regular rate and rhythm, normal S1 and S2 without murmur, rub. ABDOMEN: Soft, (+) tenderness to the upper abd b/l, gravid, normoactive bowel sounds. No guarding, no rebound. No masses. EXTREMITIES: Normal range of motion, no edema. No clubbing or cyanosis. No cords, erythema, or tenderness. NEUROLOGICAL: Cranial nerves II through XII grossly intact. Normal speech, normal gait. PSYCH: Normal mood, normal affect. SKIN: Warm, Dry, normal turgor, no rashes or lesions noted. <Danial Simeon - Last Filed: 11/12/18 02:56> <Hortencia English - Last Filed: 11/12/18 03:08> - General Chief Complaint: Pain Stated Complaint: ABDOMINAL PAIN, 20 WEEKS Past History - Past Medical History COPD: No - Reproductive History Therapeutic (s) & number: No - Immunization History Immunization Up to Date: Yes - Suicide/Smoking/Psychosocial Hx Smoking History: Never smoked Have you smoked in the past 12 months: No Hx Alcohol Use: No Drug/Substance Use Hx: No <SuarezBridgetDanial Heart - Last Filed: 11/12/18 02:56> <Hortencia English - Last Filed: 11/12/18 03:08> - Past Medical History Allergies/Adverse Reactions: Allergies Allergy/AdvReac Type Severity Reaction Status Date / Time acetaminophen [From Tylenol] Allergy Severe Swelling Verified 11/12/18 01:42 shrimp Allergy Severe Verified 11/12/18 01:42 strawberry Allergy Severe Verified 11/12/18 01:42 Home Medications: Ambulatory Orders Promethazine HCl [Phenergan Suppository -] 25 mg RC TID #3 supp.rect 09/28/18 Ranitidine [Zantac -] 150 mg PO BID #60 tablet 09/28/18 *Physical Exam - Vital Signs Last Vital Signs Temp Pulse Resp BP Pulse Ox 98.2 F 125 H 20 122/77 97 11/11/18 22:52 11/11/18 22:52 11/11/18 22:52 11/11/18 22:52 11/11/18 22:52 <Danial Simeon - Last Filed: 11/12/18 02:56> - Vital Signs Last Vital Signs Temp Pulse Resp BP Pulse Ox 98.2 F 125 H 20 122/77 97 11/11/18 22:52 11/11/18 22:52 11/11/18 22:52 11/11/18 22:52 11/11/18 22:52 <Hortencia English - Last Filed: 11/12/18 03:08> ED Treatment Course - LABORATORY CBC & Chemistry Diagram: 11/11/18 23:50 11/12/18 00:49 <Danial Simeon - Last Filed: 11/12/18 02:56> - LABORATORY CBC & Chemistry Diagram: 11/11/18 23:50 11/12/18 00:49 - ADDITIONAL ORDERS Additional order review: Laboratory Results 11/12/18 11/12/18 11/11/18 00:49 00:49 23:50 Sodium 139 Cancelled Potassium 3.5 Cancelled Chloride 105 Cancelled Carbon Dioxide 22 Cancelled Anion Gap 13 Cancelled BUN 6.7 L Cancelled Creatinine 0.4 L Cancelled Est GFR (CKD-EPI)AfAm 166.61 Cancelled Est GFR (CKD-EPI)NonAf 143.75 Cancelled POC Glucometer Random Glucose 68 L Cancelled Calcium 8.9 Cancelled Total Bilirubin 0.8 Cancelled AST 10 L Cancelled ALT 17 Cancelled Alkaline Phosphatase 87 Cancelled Total Protein 6.4 Cancelled Albumin 3.1 L Cancelled Urine Color Dk yellow Urine Appearance Clear Urine pH 6.0 Ur Specific [place] 1.026 Urine Protein 1+ H Urine Glucose (UA) Negative Urine Ketones 4+ H Urine Blood Negative Urine Nitrite Negative Urine Bilirubin 1+ H Urine Urobilinogen 1.0 Ur Leukocyte Esterase Negative Urine WBC (Auto) 6 Urine RBC (Auto) 6 Urine Casts (Auto) 21 U Epithel Cells (Auto) 4.8 Urine Bacteria (Auto) 340.1 11/11/18 23:47 Sodium Potassium Chloride Carbon Dioxide Anion Gap BUN Creatinine Est GFR (CKD-EPI)AfAm Est GFR (CKD-EPI)NonAf POC Glucometer 68 Random Glucose Calcium Total Bilirubin AST ALT Alkaline Phosphatase Total Protein Albumin Urine Color Urine Appearance Urine pH Ur Specific [place] Urine Protein Urine Glucose (UA) Urine Ketones Urine Blood Urine Nitrite Urine Bilirubin Urine Urobilinogen Ur Leukocyte Esterase Urine WBC (Auto) Urine RBC (Auto) Urine Casts (Auto) U Epithel Cells (Auto) Urine Bacteria (Auto) 08/04/19 08/04/19 23:50 23:47 RBC 3.68 MCV 93.5 D MCHC 34.2 RDW 14.9 MPV 9.2 Neutrophils % 88.5 H D Lymphocytes % 5.8 L D Monocytes % 5.3 Eosinophils % 0.1 D Basophils % 0.3 POC Glucometer 68 - Medications Given in the ED: ED Medications Discontinued Medications Generic Name Dose Route Start Last Admin Trade Name Chaparro PRN Reason Stop Dose Admin Dextrose/Sodium Chloride 2,000 mls @ 1,000 mls/hr 11/11/18 23:50 11/12/18 00: 45 D5-Ns - IV 11/12/18 01:49 1,000 mls/hr ONCE ONE Administration Famotidine/Sodium Chloride 20 mg in 50 mls @ 100 mls/hr 11/12/18 00:30 23:45 Pepcid 20 Mg Premixed Ivpb - IVPB 11/12/18 00:59 100 mls/hr ONCE ONE Administration Ondansetron HCl 4 mg 11/12/18 00:30 11/11/18 23:45 Zofran Injection IVPUSH 11/12/18 00:31 4 mg ONCE ONE Administration Sodium Chloride 1,000 ml 11/11/18 23:41 11/12/18 00:01 Normal Saline - IV 11/11/18 23:42 1,000 ml ONCE ONE Administration <Hortencia English - Last Filed: 11/12/18 03:08> Medical Decision Making - Medical Decision Making 11/11/18 23:31 Patient is a 28 year old female who is 19+ weeks G1 PO LMP 06/28/18 c/o epigastric pain with nausea and vomiting since 3 days. Patient states pain is stabbing 8/10, nonradiating. States has been unable to sleep do to the pain. States has been vomiting since yesterday, vomiting clots of blood. Has had hyperemesis throughout this . Symptoms consistent with hyperemesis, will rule out gallbladder disease Ultrasound right upper quadrant. Labs IV fluids 3 l D5 normal and normal saline, Pepcid, Zofran, Reassess Laboratory Tests 09/30/18 11/11/18 11/12/18 07:50 23:50 00:49 WBC 22.3 H Hgb 11.8 Hct 34.4 D Plt Count 290 D Sodium Potassium Chloride Carbon Dioxide Anion Gap BUN Creatinine Random Glucose ALT 98 H Alkaline Phosphatase Urine Color Dk yellow Urine Appearance Clear Urine pH 6.0 Ur Specific [place] 1.026 Urine Protein 1+ H Urine Glucose (UA) Negative Urine Ketones 4+ H Urine Blood Negative Urine Nitrite Negative Urine Bilirubin 1+ H Urine Urobilinogen 1.0 Ur Leukocyte Esterase Negative Urine WBC (Auto) 6 Urine RBC (Auto) 6 11/12/18 00:49 WBC Hgb Hct Plt Count Sodium 139 Potassium 3.5 Chloride 105 Carbon Dioxide 22 Anion Gap 13 BUN 6.7 L Creatinine 0.4 L Random Glucose 68 L ALT 17 Alkaline Phosphatase 87 Urine Color Urine Appearance Urine pH Ur Specific [place] Urine Protein Urine Glucose (UA) Urine Ketones Urine Blood Urine Nitrite Urine Bilirubin Urine Urobilinogen Ur Leukocyte Esterase Urine WBC (Auto) Urine RBC (Auto) Patient still complains of pain requesting something for pain. Morphine offered but refused Endorsed to Dr. English within ultrasound report and disposition. <Danial Simeon - Thony Filed: 11/12/18 02:56> - Medical Decision Making 11/12/18 02:42 Patient Name: GRETA INTERIANO THIS IS A PRELIMINARY REPORT FROM [facility] DATE OF SERVICE: 2018-11-12 01:40:55 IMAGES: 30 EXAM: ABDOMEN US -LIMITED , right upper quadrant and limited abdominal duplex HISTORY: Right upper quadrant pain COMPARISON: None. FINDINGS: Right upper quadrant ultrasound: The liver is normal, without mass or biliary duct dilation. The gallbladder is distended and filled with sludge. The CBD is dilated and [id number] millimeters in diameter. Right kidney measures 10.4centimeters in length and is unremarkable. The visualized aorta and IVC are normal. Pancreas is partially obscured, but appears normal. Abdominal duplex: The main portal vein demonstrates normal hepatopedal flow. IMPRESSION: Sludge-filled gallbladder without secondary findings for cholecystitis but there is a dilated CBD and therefore a distal CBD stone cannot be excluded. <Hortencia English Filed: 11/12/18 03:08> *DC/Admit/Observation/Transfer <Danial Simeon Filed: 11/12/18 02:56> - Discharge Dispostion Decision to Admit order: Yes <Hortencia English Filed: 11/12/18 03:08> Diagnosis at time of Disposition: Hyperemesis gravidarum, Gallbladder sludge Abdominal pain Qualifiers: Abdominal location: upper abdomen, unspecified Qualified Code(s): R10.10 - Upper abdominal pain, unspecified - Discharge Dispostion Condition at time of disposition: Guarded
[2018-11-11] MEDS ORDERED: SODIUM CHLORIDE 0.9% 500 ML INFUS.BAG IV ONE (23:41)
[2018-11-11] MEDS ORDERED: ONDANSETRON 4 MG/2 ML VIAL ONE (23:42)
[2018-11-11] MEDS ORDERED: FAMOTIDINE 20 MG/50 ML IVPB 20 MG/50 ML MG IVPB ONE (23:42)
[2018-11-11] MEDS ORDERED: NORMAL SALINE IV ONE (23:50)
[2018-11-11] MEDS ORDERED: DEXTROSE 5% IV ONE (23:50)
[2018-11-12 00:09] LABS: BASO % 0.3 % (0-2.0); EOS % 0.1 % (0-4.5); HEMATOCRIT 34.4 % (32.4-45.2); HEMOGLOBIN 11.8 GM/dL (10.7-15.3); LYMPH % 5.8 % (8-40); MCHC 34.2 g/dl (32.0-36.0); MEAN CELL VOLUME 93.5 fl (80-96); MEAN PLT VOLUME 9.2 fl (7.5-11.1); MONO % 5.3 % (3.8-10.2); NEUT % 88.5 % (42.8-82.8); PLATELET COUNT 290 K/MM3 (134-434); RBC 3.68 M/mm3 (3.60-5.2); RDW 14.9 % (11.6-15.6); WHITE BLOOD COUNT 22.3 K/mm3 (4.0-10.0)
[2018-11-12] MEDS ORDERED: ONDANSETRON 4 MG/2 ML VIAL IVPUSH ONE (00:30)
[2018-11-12] MEDS ORDERED: FAMOTIDINE 20 MG/50 ML IVPB 20 MG/50 ML MG IVPB ONE (00:30)
[2018-11-12 01:07] LABS: EPI CELLS 4.8 /HPF (0-5/HPF); HYALINE CASTS 21 /lpf (0-8); URINE APPEARANCE CLEAR; URINE BACTERIA 340.1 /hpf (NEGATIVE); URINE BILIRUBIN 1+ (NEGATIVE); URINE COLOR DK YELLOW; URINE GLUCOSE (UA) NEGATIVE (NEGATIVE); URINE KETONE 4+ (NEGATIVE); URINE LEUK ESTERASE NEGATIVE (NEGATIVE); URINE NITRITE NEGATIVE (NEGATIVE); URINE PROTEIN 1+ (NEGATIVE); URINE RBC 6 /hpf (0-4); URINE WBC 6 /hpf (0-5)
[2018-11-12 01:23] LABS: ALBUMIN 3.1 g/dl (3.4-5.0); BILIRUBIN,TOTAL 0.8 mg/dL (0.2-1); BLOOD UREA NITROGEN 6.7 mg/dL (7-18); CALCIUM 8.9 mg/dL (8.5-10.1); CREATININE 0.4 mg/dL (0.55-1.3); POTASSIUM 3.5 mmol/L (3.5-5.1); TOT PROT 6.4 g/dl (6.4-8.2)
[2018-11-12 02:20] LABS: PLATELET ESTIMATE ADEQUATE
[2018-11-12] MEDS ORDERED: CEFTRIAXONE 1,000 MG in DEXTROSE 5%-WATER - 50 ML IVPB ONE (03:06)
[2018-11-12] MEDS ORDERED: CEFTRIAXONE 1 GM/50 ML BAG ONE (03:09)
[2018-11-12] MEDS: SODIUM CHLORIDE 1,000 ML IV SCH ×2 (03:30→15:00)
[2018-11-12] MEDS: MORPHINE SULFATE 2 MG/ML VIAL IVPUSH PRN ×3 (04:29→19:58)
[2018-11-12] MEDS: ONDANSETRON 4 MG/2 ML VIAL IVPB SCH ×5 (04:56→21:36)
[2018-11-12 08:37] LABS: BASO % 0.3 % (0-2.0); EOS % 0.1 % (0-4.5); HEMATOCRIT 29.6 % (32.4-45.2); HEMOGLOBIN 10.1 GM/dL (10.7-15.3); LYMPH % 7.5 % (8-40); MCH 32.1 pg (25.7-33.7); MCHC 34.2 g/dl (32.0-36.0); MEAN CELL VOLUME 93.8 fl (80-96); MEAN PLT VOLUME 8.8 fl (7.5-11.1); MONO % 6.4 % (3.8-10.2); NEUT % 85.7 % (42.8-82.8); PLATELET COUNT 250 K/MM3 (134-434); RBC 3.15 M/mm3 (3.60-5.2); RDW 14.7 % (11.6-15.6); WHITE BLOOD COUNT 17.6 K/mm3 (4.0-10.0)
--- NOTE | 2018-11-12 08:56 | HP ---
Past Medical History - Admission Chief Complaint: Abdominal pain since Monday, nausea, vomiting. History of Present Illness: Pt is a 28 y/o with SIUP at 19.4 weeks gestation who was seen in the ED last night and admitted for epigastric/RUQ pain, nausea/vomiting. Pt had hyperemesis throughout the but was feeling well for the past 2 weeks without n/v. Pt states pain started acutely Shai night 11/09 and nausea/ vomiting returned. No f/c. Labs show elevated WBC, normal LFTs, ultrasound shows gallbladder sludge and interval dilation of common bile duct. History Source: Patient, Medical Record Limitations to Obtaining History: No Limitations - Past Medical History Pulmonary: Yes: Asthma Hepatobiliary: No: Hepatitis B Renal/: No: UTI Reproductive: No: Ectopic , Endometriosis, Fibroids, PID ...: 1 ...Para: 0 ...Term: 0 ...: 0 ...Spon : 0 ...Induced : 0 ...Multiple Gestation: 0 Infectious Disease: No: STD's Psych: No: Anxiety, Bipolar - Past Surgical History Past Surgical History: Yes: None Hx Myomectomy: No Hx Transabdominal Cerclage: No - Smoking History Smoking history: Never smoked Have you smoked in the past 12 months: No - Alcohol/Substance Use Hx Alcohol Use: No History of Substance Use: reports: None - Social History ADL: Independent History of Recent Travel: No Home Medications - Allergies Allergies/Adverse Reactions: Allergies Allergy/AdvReac Type Severity Reaction Status Date / Time acetaminophen [From Tylenol] Allergy Severe Swelling Verified 11/12/18 01:42 shrimp Allergy Severe Verified 11/12/18 01:42 strawberry Allergy Severe Verified 11/12/18 01:42 - Home Medications Home Medications: Ambulatory Orders Promethazine HCl [Phenergan Suppository -] 25 mg RC TID #3 supp.rect 09/28/18 Ranitidine [Zantac -] 150 mg PO BID #60 tablet 09/28/18 Family Disease History - Family Disease History Family Disease History: Other: Grandparent (Maternal GF possibly with colon ca) , Father (Alive: HTN), Mother (Alive: Healthy), Brother (2, healthy), Sister (1 , healthy) Review of Systems - Review of Systems Constitutional: reports: No Symptoms Eyes: reports: No Symptoms HENT: reports: No Symptoms Neck: reports: No Symptoms Cardiovascular: reports: No Symptoms Respiratory: reports: No Symptoms Gastrointestinal: reports: Abdominal Pain, Nausea, Vomiting Genitourinary: reports: No Symptoms Integumentary: reports: No Symptoms Endocrine: reports: No Symptoms Pain Intensity: 7 Physical Exam - Maternity Vital Signs: Vital Signs Temperature 98.6 F 11/12/18 05:57 Pulse Rate 108 H 11/12/18 05:57 Respiratory Rate 18 11/12/18 05:57 Blood Pressure 112/72 11/12/18 05:57 O2 Sat by Pulse Oximetry (%) 97 11/11/18 22:52 Constitutional: Yes: Well Nourished, Calm Eyes: Yes: Conjunctiva Clear HENT: Yes: Atraumatic Cardiovascular: Yes: Regular Rate and Rhythm Lungs: Clear to auscultation - Abdominal Exam/OB Fundal Height: 20 Number of Fetuses: Single Contractions: No Heart Rate (range): 145 by doppler - Vaginal Exam/OB Amniotic Membrane Status: Intact - Physical Exam Psychiatric: Yes: Alert, Oriented - Labs Lab Results: CBC, BMP 11/12/18 00:49 Imaging - Results Ultrasound: Report Reviewed Assessment/Plan abdominal pain, nausea/vomiting possible choledocholithiasis vs. cholecystitis will get surgical consult to determine if need for surgical management may need MRCP per ultrasound report will also consult GI if needs surgical management /procedure may need transfer to tertiary care facility will keep NPO for now
[2018-11-12] MEDS: FAMOTIDINE 20 MG/50 ML IVPB 20 MG/50 ML MG IVPB SCH ×2 (09:41→21:52)
--- NOTE | 2018-11-12 14:32 | CON.GI ---
Consult Consult Specialty:: GI Referred by:: BENNETT Reason for Consultation:: dilated CBD - History of Present Illness Chief Complaint: epigastric pain N/V History of Present Illness: 28F with h/o hyperemesis gravidarum at 19.5 weeks gestation presenting for evaluation of acute onset epigastric/RUQ pain on Monday night at midnight. Reports had eaten fried chicken for lunch and frosted flakes for dinner. Pain began out of the blue with associated N/V. No fever/chills. First episode of such pain. No FHx gallbladder issues. Pain did not go away over weekend so came in last night for further evaluation. Patient reports dark urine, no lightening of stool. On labs, WBC elevated, LFTs normal. US with gallbladder sludge, mild wall thickening, and dilated CBD to 9mm. Patient is still currently in pain. - Past Medical History Pulmonary: Yes: Asthma Hepatobiliary: No: Hepatitis B Renal/: No: UTI ...LMP: 06/28/18 ...: Yes Infectious Disease: No: STD's Psych: No: Anxiety, Bipolar - Past Surgical History Past Surgical History: Yes: None - Alcohol/Substance Use Hx Alcohol Use: No History of Substance Use: reports: None - Smoking History Smoking history: Never smoked Have you smoked in the past 12 months: No - Social History Usual Living Arrangement: With Spouse ADL: Independent History of Recent Travel: No Home Medications - Allergies Allergies/Adverse Reactions: Allergies Allergy/AdvReac Type Severity Reaction Status Date / Time acetaminophen [From Tylenol] Allergy Severe Swelling Verified 11/12/18 01:42 shrimp Allergy Severe Verified 11/12/18 01:42 strawberry Allergy Severe Verified 11/12/18 01:42 - Home Medications Home Medications: Ambulatory Orders Promethazine HCl [Phenergan Suppository -] 25 mg RC TID #3 supp.rect 09/28/18 Ranitidine [Zantac -] 150 mg PO BID #60 tablet 09/28/18 Family Disease History - Family Disease History Family Disease History: Other: Grandparent (Maternal GF possibly with colon ca) , Father (Alive: HTN), Mother (Alive: Healthy), Brother (2, healthy), Sister (1 , healthy) Review of Systems - Review of Systems Constitutional: denies: Chills, Fever Gastrointestinal: reports: Abdominal Pain, Nausea, Vomiting Musculoskeletal: reports: No Symptoms Neurological: reports: No Symptoms Endocrine: reports: No Symptoms Psychiatric: reports: No Symptoms Physical Exam-GI Vital Signs: Vital Signs Temperature 98.5 F 11/12/18 13:59 Pulse Rate 108 H 11/12/18 13:59 Respiratory Rate 18 11/12/18 13:59 Blood Pressure 110/66 11/12/18 13:59 O2 Sat by Pulse Oximetry (%) 97 11/11/18 22:52 Constitutional: Yes: Well Nourished, No Distress Eyes: Yes: Conjunctiva Clear HENT: Yes: Atraumatic, Normocephalic Cardiovascular: Yes: Regular Rate and Rhythm Respiratory: Yes: CTA Bilaterally ...Palpate: Yes: Soft, Tenderness, Epigastium, Other (gravid lower abdomen) ...Rectal Exam: Yes: Deferred Musculoskeletal: Yes: WNL Extremities: Yes: WNL Neurological: Yes: Alert, Oriented Labs: CBC, BMP 11/12/18 06:54 11/12/18 00:49 Hepatic Panel Total Bilirubin 0.8 mg/dL (0.2-1) 11/12/18 00:49 AST 10 U/L (15-37) L 11/12/18 00:49 ALT 17 U/L (13-61) 11/12/18 00:49 Alkaline Phosphatase 87 U/L (45-117) 11/12/18 00:49 Albumin 3.1 g/dl (3.4-5.0) L 11/12/18 00:49 Imaging - Results Ultrasound: Report Reviewed Assessment/Plan DDX - acute cholecystitis vs biliary colic Intermediate probability of choledocholithiasis given newly dilated CBD but LFTs normal Would check amylase/lipase to r/o pancreatitis Defer decision regarding abx for possible cholecystitis to surgical consult Would obtain MRCP to assess for CBD obstruction Discussed in detail with pt and at bedside
--- NOTE | 2018-11-12 16:20 | CONSULT ---
Consult Consult Specialty:: General Surgery Reason for Consultation:: abdominal pain - History of Present Illness Chief Complaint: abdominal pain History of Present Illness: 28 yo female PMH asthma 19+ weeks G1 PO LMP 06/28/18 c/o epigastric pain with nausea and vomiting since 3 days. Patient states pain is stabbing 8/10, nonradiating. States has been unable to sleep do to the pain. States has been vomiting since yesterday, vomiting clots of blood. Has had hyperemesis throughout this . Denies any fever, chills, dysuria. Patient was recently admitted to the hospital for hyperemesis and for elevated liver enzymes. Review of the records show that at the time ultrasound showed some sludge. we were asked to assess. - History Source History Provided By: Patient, Significant Other, Medical Record Limitations to Obtaining History: No Limitations - Past Medical History Pulmonary: Yes: Asthma Hepatobiliary: No: Hepatitis B Renal/: No: UTI ...LMP: 06/28/18 ...: Yes Infectious Disease: No: STD's Psych: No: Anxiety, Bipolar - Past Surgical History Past Surgical History: Yes: None - Alcohol/Substance Use Hx Alcohol Use: No History of Substance Use: reports: None - Smoking History Smoking history: Never smoked Have you smoked in the past 12 months: No - Social History Usual Living Arrangement: With Spouse ADL: Independent History of Recent Travel: No Home Medications - Allergies Allergies/Adverse Reactions: Allergies Allergy/AdvReac Type Severity Reaction Status Date / Time acetaminophen [From Tylenol] Allergy Severe Swelling Verified 11/12/18 01:42 shrimp Allergy Severe Verified 11/12/18 01:42 strawberry Allergy Severe Verified 11/12/18 01:42 - Home Medications Home Medications: Ambulatory Orders Promethazine HCl [Phenergan Suppository -] 25 mg RC TID #3 supp.rect 09/28/18 Ranitidine [Zantac -] 150 mg PO BID #60 tablet 09/28/18 Family Disease History - Family Disease History Family Disease History: Other: Grandparent (Maternal GF possibly with colon ca) , Father (Alive: HTN), Mother (Alive: Healthy), Brother (2, healthy), Sister (1 , healthy) Review of Systems - Review of Systems Constitutional: denies: Chills, Fever Eyes: denies: Blind Spots, Recent Change in Vision HENT: denies: Ear Discharge, Throat Pain, Toothache Neck: denies: Pain on Movement, Tenderness Cardiovascular: denies: Chest Pain, Palpitations Respiratory: denies: Cough, SOB Gastrointestinal: reports: Abdominal Pain. denies: Bloating, Constipation, Diarrhea Genitourinary: denies: Discharge, Dysuria Breasts: reports: No Symptoms Reported. denies: Pain, Skin Changes Musculoskeletal: denies: Crepitus, Muscle Pain Integumentary: denies: Pallor, Rash Neurological: denies: Seizure, Syncope Endocrine: denies: Unexplained Weight Gain, Unexplained Weight Loss Hematology/Lymphatic: denies: Easily Bruised, Excessive Bleeding Psychiatric: denies: Anxiety, Depression Physical Exam Vital Signs: Vital Signs Temperature 98.5 F 11/12/18 13:59 Pulse Rate 108 H 11/12/18 13:59 Respiratory Rate 18 11/12/18 13:59 Blood Pressure 110/66 11/12/18 13:59 O2 Sat by Pulse Oximetry (%) 97 11/11/18 22:52 Labs: CBC, BMP 11/12/18 06:54 11/12/18 00:49 Imaging - Results Ultrasound: Report Reviewed, Image Reviewed Problem List - Problems (1) Biliary colic Assessment/Plan: 28yo gravid female with epigastric and RUQ pain, transient, likely biliary colic probably diet related. Low index of suspicion for acalculus cholecystitis or biliary dyskinesia. No acute intervention from General Surgery. Agree with GI plan for MRCP NPO and IVF hydration IV antibioitcs per ID Strict low fat diet for remainder adequate analgesia Recall as needed Thank you for the opportunity to participate in the care of this patient. Code(s): K80.50 - CALCULUS OF BILE DUCT W/O CHOLANGITIS OR CHOLECYST W/O OBST (2) Abdominal pain in female patient Code(s): R10.9 - UNSPECIFIED ABDOMINAL PAIN (3) Asthma Code(s): J45.909 - UNSPECIFIED ASTHMA, UNCOMPLICATED (4) Gallbladder sludge Code(s): K82.8 - OTHER SPECIFIED DISEASES OF GALLBLADDER (5) Hyperemesis gravidarum Code(s): O21.0 - MILD HYPEREMESIS GRAVIDARUM
[2018-11-13] MEDS: ONDANSETRON 4 MG/2 ML VIAL IVPB SCH ×3 (01:56→10:43)
[2018-11-13] MEDS: MORPHINE SULFATE 2 MG/ML VIAL IVPUSH PRN (08:18)
[2018-11-13 08:32] LABS: BASO % 0.3 % (0-2.0); EOS % 0.2 % (0-4.5); HEMATOCRIT 29.1 % (32.4-45.2); LYMPH % 6.8 % (8-40); MCH 32.1 pg (25.7-33.7); MCHC 34.3 g/dl (32.0-36.0); MEAN CELL VOLUME 93.7 fl (80-96); MEAN PLT VOLUME 7.7 fl (7.5-11.1); MONO % 6.4 % (3.8-10.2); NEUT % 86.3 % (42.8-82.8); PLATELET COUNT 240 K/MM3 (134-434); RBC 3.11 M/mm3 (3.60-5.2); RDW 14.2 % (11.6-15.6); WHITE BLOOD COUNT 19.2 K/mm3 (4.0-10.0)
--- NOTE | 2018-11-13 09:05 | PN ---
Progress Note, Physician Chief Complaint: Pt still with pain overnight. No N/V. WBC increasing. tachycardic, no fevers/chills. MRCP overnight showed no dilation of CBD, no gallstones, possible ovarian cyst - Current Medication List Current Medications: Active Medications Sodium Chloride (Normal Saline -) 1,000 mls @ 125 mls/hr IV ASDIR EVER Last Admin: 11/12/18 15:00 Dose: 125 mls/hr Famotidine/Sodium Chloride (Pepcid 20 Mg Premixed Ivpb -) 20 mg in 50 mls @ 100 mls/hr IVPB BID EVER Last Admin: 11/12/18 21:52 Dose: 100 mls/hr Morphine Sulfate (Morphine Sulfate) 1 mg IVPUSH Q4H PRN PRN Reason: PAIN LEVEL 4 - 6 Last Admin: 11/13/18 08:18 Dose: 1 mg Ondansetron HCl (Zofran Injection) 4 mg IVPB Q4H-IV EVER Last Admin: 11/13/18 06:24 Dose: 4 mg - Objective Vital Signs: Vital Signs Temperature 98.9 F 11/13/18 06:00 Pulse Rate 112 H 11/13/18 06:00 Respiratory Rate 20 11/13/18 06:00 Blood Pressure 119/59 L 11/13/18 06:00 O2 Sat by Pulse Oximetry (%) 97 11/11/18 22:52 Constitutional: Yes: Well Nourished, Calm HENT: Yes: Atraumatic Neck: Yes: Supple Cardiovascular: Yes: Tachycardia Gastrointestinal: Yes: Soft, Tenderness (RUQ and right mid abdomen) Genitourinary: Yes: Neurological: Yes: Alert, Oriented Psychiatric: Yes: Alert, Oriented Labs: CBC, BMP 11/13/18 08:20 Problem List - Problems (1) Abdominal pain Code(s): R10.9 - UNSPECIFIED ABDOMINAL PAIN Qualifiers: Abdominal location: upper abdomen, unspecified Qualified Code(s): R10.10 - Upper abdominal pain, unspecified (2) Hyperemesis gravidarum Code(s): O21.0 - MILD HYPEREMESIS GRAVIDARUM (3) Gallbladder sludge Code(s): K82.8 - OTHER SPECIFIED DISEASES OF GALLBLADDER Assessment/Plan abdominal pain, nausea, no vomiting since admission LFTs normal yesterday, repeated today, h/o HepA antibodies earlier in - missed outpatient GI appointment yesterday due to admission- GI following appreciate Gi and surgery input amylase/lipase not elevated leukocytosis worsening - will send urine culture will get ultrasound to evaluate "pelvic mass" noted on MRI, r/o ov cyst/ovarian torsion if needs surgical management /procedure would transfer to tertiary care facility
[2018-11-13 09:48] LABS: ALBUMIN 2.8 g/dl (3.4-5.0); BILIRUBIN,TOTAL 1.7 mg/dL (0.2-1); CALCIUM 8.6 mg/dL (8.5-10.1); CREATININE 0.3 mg/dL (0.55-1.3); POTASSIUM 3.4 mmol/L (3.5-5.1); TOT PROT 6.2 g/dl (6.4-8.2)
[2018-11-13] MEDS: FAMOTIDINE 20 MG/50 ML IVPB 20 MG/50 ML MG IVPB SCH (10:04)
[2018-11-13 10:13] LABS: BLOOD UREA NITROGEN 1.5 mg/dL (7-18)
[2018-11-13 10:47] LABS: EPI CELLS 2.4 /HPF (0-5/HPF); HYALINE CASTS 4 /lpf (0-8); PH,URINE 5.5 (5.0-8.0); URINE APPEARANCE CLEAR; URINE BACTERIA 78.2 /hpf (NEGATIVE); URINE BILIRUBIN NEGATIVE (NEGATIVE); URINE COLOR YELLOW; URINE GLUCOSE (UA) NEGATIVE (NEGATIVE); URINE KETONE 4+ (NEGATIVE); URINE LEUK ESTERASE TRACE (NEGATIVE); URINE NITRITE NEGATIVE (NEGATIVE); URINE PROTEIN NEGATIVE (NEGATIVE); URINE RBC 2 /hpf (0-4); URINE WBC 6 /hpf (0-5)
--- NOTE | 2018-11-13 13:00 | DS ---
Physical Exam-SUPERVISOR GLUING Vital Signs: Vital Signs Temperature 98.4 F 11/13/18 10:00 Pulse Rate 106 H 11/13/18 10:00 Respiratory Rate 20 11/13/18 10:00 Blood Pressure 120/74 11/13/18 10:00 O2 Sat by Pulse Oximetry (%) 97 11/11/18 22:52 Constitutional: Yes: Well Nourished, No Distress, Calm Eyes: Yes: Conjunctiva Clear HENT: Yes: Atraumatic Gastrointestinal: Yes: Soft, Tenderness (RUQ and Right mid abdomen, no CVA tenderness) Neurological: Yes: Alert, Oriented Psychiatric: Yes: Alert, Oriented Labs: CBC, BMP 11/13/18 08:20 11/13/18 08:20 Discharge Summary Reason For Visit: SLUDGE IN GALLBLADDER/HYPEREMESIS GRAVIDARUM Current Active Problems Abdominal pain (Acute) Abdominal pain in female patient (Acute) Asthma (Acute) Biliary colic (Acute) Gallbladder sludge (Acute) Hyperemesis gravidarum (Acute) Procedures: Principal: ultrasound examination, MRCP Hospital Course: Pt admitted to hospital interventional nurse on 11/12/2018 with abdominal pain/nausea/ vomiting and elevated WBC. Imaging studies showed gall bladder sludge and wall thickening, dilated CBD. Initial concern was for cholecystitis vs. choledocholithiasis. MRCP unremarkable but did, however, show a large pelvic mass. Upon ultrasound examination a large 10x7x7 cm complex adnexal mass was noted, ovarian flow was documented. This adnexal mass was new as compared to her last ultrasound in September. Pt also with a leukocytosis upon admission which did not improve with IV antibiotics. Pt afebrile but tachycardic. Due to possible infectious process and possible need for procedural/surgical intervention, pt transferred to [facility] on 11/13[facility]18. Condition: Fair - Instructions Diet, Activity, Other Instructions: OB Triage Discharge Instructions Dr Dewey and Dr Badillo IMPORTANT: Please follow ALL basic instructions AND any other instructions that have been marked with an X: Hydration and Elimination: _X_ Drink at least eight 8-ounce glasses of water a day _X_ Empty bladder frequently. Be sure to go to the bathroom when you first feel the urge. Don't wait! Movement Counts: _X_ Count your baby's kicks once a day Instructions: After mealtime, lay down in a quiet room (e.g., TV and radio off) . Over two (2) hours, count the number of times your baby moves. Once you have counted 10 movements, you are donel If you did not count 10 movements in two (2) hours, call your electrician. Notify your doctor for any of the following signs/symptoms: _X_ Less than 10 movements over two (2) hours _X_ Constant firm uterus (contraction that doesn't go away) _X_ Water gushing or leaking from the vagina; report amount, color, and odor to MD _X_ Increased vaginal discharge and/or odorous discharge _X_ Vaginal bleeding: spotting, flow, or clots _X_ Unrelieved indigestion, nausea, or vomiting _X_ Diarrhea (frequent loose/runny stools) _X_ Unrelieved headache _X_ Vision changes: blurriness, spots, flashes of light _X_ Mental confusion, or seizure _X_ Shortness of breath or difficulty breathing [ X] Onset of contractions: _ in an hour with or without pain [ X ] Low back pain or lower abdominal pain [ X] Abdominal tenderness [ X } Increased swelling of your face or hands [ X] Signs of bladder infection: Urgency, increased urination frequency, pain and/or burning when urinating Please follow up with your doctor at [facility] after discharge from the other facility. Disposition: TRANSFER ACUTE CARE/OTHER HOSP - Home Medications Comprehensive Discharge Medication List: Ambulatory Orders Promethazine HCl [Phenergan Suppository -] 25 mg RC TID #3 supp.rect 09/28/18 Ranitidine [Zantac -] 150 mg PO BID #60 tablet 09/28/18
[2018-11-13] MEDS ORDERED: CEFTRIAXONE 1 GM in DEXTROSE 5%-WATER - 50 ML IVPB ONE (13:15)
[2018-11-13 15:02] VITALS: BP 131/77; PULSE 108; TEMP 98.6
== END 2018-11-13 13:45 | disposition short-term general hospital (02) | DRG 832 ==
LOC: JER 22:47 → JERBED 11-12 03:08 → J3W 11-12 03:50
PROVIDERS: ADMIT Obstetrics & Gynecology; ATTEND Obstetrics & Gynecology
DX: O21.0 Mild hyperemesis gravidarum (principal); O26.612 Liver and biliary tract disorders in pregnancy, second trimester; Z3A.19 19 weeks gestation of pregnancy; O26.892 Other specified pregnancy related conditions, second trimester; J45.909 Unspecified asthma, uncomplicated; K82.8 Other specified diseases of gallbladder; R22.9 Localized swelling, mass and lump, unspecified; D72.829 Elevated white blood cell count, unspecified; K83.8 Other specified diseases of biliary tract; R10.9 Unspecified abdominal pain
CPT/HCPCS: 36415; 74181-TC; 76705-TC; 76815-TC; 76856-TC; 80053; 81003; 82150; 82962; 83690; 85025; 87086; 99285-25; J7030

== ENCOUNTER 2019-03-26 08:16 | Inpatient (IN) | payer BC ==
[2019-03-26] MEDS: ELECTROLYTE-148 SOLN 1,000 ML IV SCH ×2 (08:30→10:50)
[2019-03-26 09:47] VITALS: BMI 31.5
[2019-03-26] MEDS ORDERED: CITRIC ACID/SODIUM CITRATE 30 ML UNIT-DOSE CUP PO ONE (09:51)
--- NOTE | 2019-03-26 09:51 | HP ---
Past Medical History - Primary Care Physician PCP:: Joanna Dewey - Admission Chief Complaint: Elevtive Section History of Present Illness: 28 yo G P0 EDC EGA 39 weeks sp previous appendectomy and oophorectomy who desires section History Source: Patient - Past Medical History Pulmonary: Yes: Asthma ...: 1 ...Para: 0 ...Term: 0 ...: 0 ...Spon : 0 ...Induced : 0 ...Multiple Gestation: 0 ...EDC by Sono: 04/04/19 - Past Surgical History Past Surgical History: Yes: Appendectomy, Oopherectomy Hx Myomectomy: No Hx Transabdominal Cerclage: No - Smoking History Smoking history: Never smoked Have you smoked in the past 12 months: No - Alcohol/Substance Use Hx Alcohol Use: No History of Substance Use: reports: None - Social History ADL: Independent History of Recent Travel: No Home Medications - Allergies Allergies/Adverse Reactions: Allergies Allergy/AdvReac Type Severity Reaction Status Date / Time acetaminophen [From Tylenol] Allergy Severe Swelling Verified 03/19/19 16:41 shrimp Allergy Severe Verified 03/19/19 16:41 strawberry Allergy Severe Verified 03/19/19 16:41 - Home Medications Home Medications: Ambulatory Orders Docusate Sodium [Colace] 1 tab PO DAILY 03/19/19 Ferrous Sulfate 1 tab PO DAILY 03/19/19 Vits96/Iron Fum/Folic [ Tablet] 1 tab PO DAILY 03/19/19 Promethazine HCl [Phenergan Suppository -] 25 mg RC DAILY 03/19/19 Physical Exam - Maternity Vital Signs: Vital Signs Temperature 99.0 F 03/26/19 08:35 Pulse Rate 81 03/26/19 08:35 Respiratory Rate 18 03/26/19 08:35 Blood Pressure 132/73 03/26/19 08:35 O2 Sat by Pulse Oximetry (%) Constitutional: Yes: Well Nourished, No Distress Cardiovascular: Yes: WNL, Regular Rate and Rhythm Lungs: Clear to auscultation - Abdominal Exam/OB Number of Fetuses: Single Presentation: Vertex Contractions: No Category: I Decelerations: None - Vaginal Exam/OB Vaginal Bleediing: No Speculum Exam: No Dilatation (cm): closed - Physical Exam Musculoskeletal: Yes: WNL Extremities: Yes: WNL Hemorrhage Risk Assessment - Risk Factors Risk Score: 0 Risk Level: Low Risk Assessment/Plan IUp at 39 weeks elective CS Cat 1 Previous appendectomy previous oophorectomy Plan section
[2019-03-26] MEDS ORDERED: BENZOCAINE 28 GM HEMORRHOIDAL OINTMENT TP PRN (09:52)
[2019-03-26] MEDS ORDERED: METHYLERGONOVINE MALEATE 0.2 MG/1 ML AMP IM PRN (09:52)
[2019-03-26] MEDS ORDERED: IBUPROFEN 800 MG/8 ML IJ IVPB PRN (09:52)
[2019-03-26] MEDS ORDERED: OXYTOCIN 20 UNITS in 0.9% NS 20 UNIT/1,000 ML INFUS.BAG IV SCH (10:00)
[2019-03-26] MEDS ORDERED: morphine SULFATE/PF 0.5 MG/ML (2cc Syringe - QUVA) ONE (10:21)
[2019-03-26] MEDS ORDERED: ePHEDrine SULFATE 50 MG/1 ML AMPULE ONE (10:23)
[2019-03-26] MEDS ORDERED: OXYTOCIN 20 UNITS in 0.9% NS 40 UNIT/2,000 ML INFUS.BAG IV ONE (10:34)
[2019-03-26] MEDS ORDERED: morphine SULFATE/PF 0.5 MG/ML (2cc Syringe - QUVA) EP ONE (13:36)
[2019-03-26] MEDS: ONDANSETRON 4 MG/2 ML VIAL IVPUSH PRN ×2 (13:50→17:25)
--- NOTE | 2019-03-26 20:37 | OP ---
Operative Note - Note: Operative Date: 03/26/19 Pre-Operative Diagnosis: Elective Section. 39 weeks Operation: Primary low Transverse Section Findings: Live male Post-Operative Diagnosis: Same as Pre-op Surgeon: Joanna Dewey Salesperson Books: Paresh Bryan Anesthesia: Spinal Estimated Blood Loss (mls): 700 Operative Report Dictated: Yes
--- NOTE | 2019-03-27 07:13 | PN ---
Progress Note (SOAP) - Subjective Chief Complaint: Pt doing well - Current Medications Current Medications: Active Medications Benzocaine (Americaine Ointment -) 1 applic TP PRN PRN PRN Reason: Pain - Topical Bisacodyl (Dulcolax Suppository -) 10 mg RC PRN PRN PRN Reason: CONSTIPATION Diphenhydramine HCl (Benadryl Injection -) 25 mg IVPUSH Q4H PRN PRN Reason: Pruritis Ferrous Sulfate (Feosol -) 325 mg PO BID [facility] Oxytocin/Sodium Chloride (Normal Saline+20 Units Oxytocin -) 20 unit in 1,000 mls @ 125 mls/hr IV ASDIR EVER Last Admin: 03/26/19 11:50 Dose: 125 mls/hr Ibuprofen (Caldolor Injection -) 800 mg IVPB Q8H PRN PRN Reason: PAIN LEVEL 4 - 6 Last Admin: 03/26/19 15:06 Dose: 800 mg Ibuprofen (Motrin -) 600 mg PO Q4H PRN PRN Reason: PAIN LEVEL 1 - 3 Methylergonovine Maleate (Methergine Injection -) 0.2 mg IM Q4H PRN PRN Reason: Excessive Bleeding (L&D) Ondansetron HCl (Zofran Injection) 4 mg IVPUSH Q4H PRN PRN Reason: NAUSEA Last Admin: 03/26/19 17:25 Dose: 4 mg Multivit/Folic Acid/Iron ( Vitamins (Sjr) -) 1 tab PO DAILY [facility] Senna/Docusate Sodium (Pericolace -) 2 tablet PO HS PRN PRN Reason: CONSTIPATION Simethicone (Mylicon -) 80 mg PO Q4H PRN PRN Reason: GAS - Objective Vital Signs: Vital Signs Temperature 98.3 F 03/27/19 05:45 Pulse Rate 103 H 03/27/19 05:45 Respiratory Rate 18 03/27/19 06:00 Blood Pressure 114/55 L 03/27/19 05:45 O2 Sat by Pulse Oximetry (%) 99 03/26/19 13:15 Constitutional: Yes: Well Nourished, No Distress Respiratory: Yes: WNL Gastrointestinal: Yes: WNL, Soft ....Post : Yes: Uterus firm, Uterus non-tender Breast(s): Yes: WNL Musculoskeletal: Yes: WNL Extremities: Yes: WNL Edema: No Wound/Incision: Yes: Clean/Dry, Well Approximated Neurological: Yes: WNL, Alert, Oriented Assessment/Plan SP Section POD 1 Stable Plan section
[2019-03-27] MEDS: IBUPROFEN 600 MG TABLET (FP) PO PRN ×3 (07:33→21:23)
--- NOTE | 2019-03-27 09:05 | PN ---
Progress Note (short form) - Note Progress Note: POD1 s/p csection with spinal and duramorph. Pt's pain is well controlled, no back pain, no LONG, able to ambulate. No anesthetic issues/complications
[2019-03-27] MEDS: PRENATAL VITAMINS W/ FOLIC ACID TABLET (FP) PO SCH (09:13)
[2019-03-27] MEDS: FERROUS SO4 325 MG TABLET (FP) PO SCH ×2 (09:13→21:24)
[2019-03-27 09:33] LABS: BASO % 0.3 % (0-2.0); EOS % 0.2 % (0-4.5); HEMATOCRIT 23.4 % (32.4-45.2); HEMOGLOBIN 8.1 GM/dL (10.7-15.3); LYMPH % 10.7 % (8-40); MCH 31.5 pg (25.7-33.7); MCHC 34.4 g/dl (32.0-36.0); MEAN CELL VOLUME 91.7 fl (80-96); MEAN PLT VOLUME 8.7 fl (7.5-11.1); MONO % 5.5 % (3.8-10.2); NEUT % 83.3 % (42.8-82.8); PLATELET COUNT 156 K/MM3 (134-434); RBC 2.56 M/mm3 (3.60-5.2); WHITE BLOOD COUNT 12.6 K/mm3 (4.0-10.0)
[2019-03-27] MEDS ORDERED: BISACODYL 10 MG SUPP.RECT RC PRN (09:52)
[2019-03-27] MEDS: SIMETHICONE 80 MG TAB.CHEW (FP) PO PRN ×2 (13:45→21:24)
[2019-03-27] MEDS: SENNOSIDES/DOCUSATE COMBO (SENNA PLUS) TABLET (UD) PO PRN (21:24)
[2019-03-28] MEDS: IBUPROFEN 600 MG TABLET (FP) PO PRN ×4 (01:29→22:54)
[2019-03-28] MEDS: SIMETHICONE 80 MG TAB.CHEW (FP) PO PRN ×2 (01:30→18:59)
[2019-03-28] MEDS: PRENATAL VITAMINS W/ FOLIC ACID TABLET (FP) PO SCH (10:13)
[2019-03-28] MEDS: FERROUS SO4 325 MG TABLET (FP) PO SCH ×2 (10:13→22:00)
[2019-03-28] MEDS: SENNOSIDES/DOCUSATE COMBO (SENNA PLUS) TABLET (UD) PO PRN (22:00)
[2019-03-29] MEDS: IBUPROFEN 600 MG TABLET (FP) PO PRN (08:46)
[2019-03-29] MEDS: SIMETHICONE 80 MG TAB.CHEW (FP) PO PRN (08:46)
[2019-03-29 09:07] VITALS: BP 126/76; PULSE 97; TEMP 98.2
[2019-03-29 09:13] LABS: EOS % 2.6 % (0-4.5); HEMATOCRIT 22.5 % (32.4-45.2); HEMOGLOBIN 7.8 GM/dL (10.7-15.3); LYMPH % 10.4 % (8-40); MCH 31.7 pg (25.7-33.7); MCHC 34.6 g/dl (32.0-36.0); MEAN CELL VOLUME 91.7 fl (80-96); MEAN PLT VOLUME 8.4 fl (7.5-11.1); MONO % 45.4 % (3.8-10.2); NEUT % 41.6 % (42.8-82.8); PLATELET COUNT 219 K/MM3 (134-434); RBC 2.45 M/mm3 (3.60-5.2); RDW 14.1 % (11.6-15.6); WHITE BLOOD COUNT 10.9 K/mm3 (4.0-10.0)
--- NOTE | 2019-03-29 10:06 | DS ---
Physical Exam-SHORT ORDER FRY COOK Vital Signs: Vital Signs Temperature 98.2 F 03/29/19 09:00 Pulse Rate 97 H 03/29/19 09:00 Respiratory Rate 18 03/29/19 09:00 Blood Pressure 126/76 03/29/19 09:00 O2 Sat by Pulse Oximetry (%) 99 03/26/19 13:15 Constitutional: Yes: Well Nourished Eyes: Yes: Conjunctiva Clear Neck: Yes: Supple Cardiovascular: Yes: Regular Rate and Rhythm Respiratory: Yes: Regular Gastrointestinal: Yes: Normal Bowel Sounds Pelvis: Yes: WNL External Genitalia: Yes: Normal Internal Exam Deferred: No Vaginal Exam: Yes: Bleeding Uterus: Yes: Firm ....Post : Yes: Uterus firm Extremities: No: Calf Tenderness Wound/Incision: Yes: Well Approximated, Steri Strips (in place) Neurological: Yes: Alert, Oriented ...Motor Strength: WNL Psychiatric: Yes: Alert, Oriented Labs: CBC, BMP 03/29/19 08:05 Delivery - Delivery Type of Anesthesia: Spinal Episiotomy/Laceration: None EBL (cc): 700 Delivery, Single - Stages of Labor Date of Delivery: 03/26/19 Time of Delivery: 11:12 Time Placenta Delivered: 11:13 - Condition of Kitchen Supervisor/Soap Chipper Present: Yes Name: Rodrigo Candelaria Gender: Male Weight: 8 lb 6 oz Total Hours ROM (Hrs/Mins): 0/2 - 1 Minute Total Score: 9 5 Minutes Total Score: 9 - [place] Feeding Plan Initial Plan: Exclusive throughout hospitalization Discharge Summary Problems reviewed: Yes Reason For Visit: C SECTION Procedures: Principal: Primary Low Transverse Hospital Course: Routine post op care Health Concerns: None Plan of Treatment: Ambulation Analgesia F/U with MD in one week Goals: Resume normal activities in 4 weeks Condition: Good - Instructions Diet, Activity, Other Instructions: Regular diet Ambulation No driving, no lifting x 4 weeks F/U with MD in 0ne week Disposition: HOME - Home Medications Comprehensive Discharge Medication List: Ambulatory Orders Ferrous Sulfate 1 tab PO DAILY 03/19/19 Vits96/Iron Fum/Folic [ Tablet] 1 tab PO DAILY 03/19/19 Promethazine HCl [Phenergan Suppository -] 25 mg RC DAILY 03/19/19 Docusate Sodium [Colace] 100 mg PO 03/26/19
[2019-03-29 10:32] LABS: PLATELET ESTIMATE NORMAL
[2019-03-29] MEDS: PRENATAL VITAMINS W/ FOLIC ACID TABLET (FP) PO SCH (10:44)
[2019-03-29] MEDS: FERROUS SO4 325 MG TABLET (FP) PO SCH (10:44)
[2019-03-29] MEDS ORDERED: DIPHTH,PERTUSS(ACELL),TET 0.5 ML DISP.SYRIN IM ONE (12:00)
== END 2019-03-29 14:45 | disposition home or self-care (01) | DRG 788 ==
LOC: JLDR 08:16 → J3W 14:36
PROVIDERS: ADMIT Obstetrics & Gynecology; ATTEND Obstetrics & Gynecology
PROC: 10D00Z1 Extraction of Products of Conception, Low, Open Approach (ICD-10-PCS; principal; 2019-03-26)
DX: O82 Encounter for cesarean delivery without indication (principal); Z3A.39 39 weeks gestation of pregnancy; Z37.0 Single live birth
CPT/HCPCS: 36415; 36600; 82803; 85025; 86850; 86900; 86901; 90715

== ENCOUNTER 2020-04-06 08:17 | Inpatient (IN) | payer BC ==
[2020-04-06] MEDS ORDERED: PROMETHAZINE HCL 25 MG/1 ML VIAL IVPB ONE (09:28)
[2020-04-06 09:29] VITALS: BMI 29.5
[2020-04-06] MEDS ORDERED: ELECTROLYTE-148 SOLN 1,000 ML IV SCH (09:30)
[2020-04-06] MEDS ORDERED: ONDANSETRON 4 MG/2 ML VIAL ONE (10:02)
[2020-04-06] MEDS ORDERED: ceFAZolin SODIUM 1 GM VIAL ONE (10:02)
[2020-04-06] MEDS ORDERED: DEXAMETHASONE SOD PHOSPHATE 4 MG/1 ML VIAL ONE (10:02)
[2020-04-06] MEDS ORDERED: morphine SULFATE/PF 1 MG/2 ML (2cc Syringe - QUVA) ONE (10:03)
[2020-04-06] MEDS ORDERED: CITRIC ACID/SODIUM CITRATE 30 ML UNIT-DOSE CUP PO ONE (10:03)
[2020-04-06] MEDS ORDERED: OXYTOCIN 20 UNITS in 0.9% NS 40 UNIT/2,000 ML INFUS.BAG IV ONE (10:14)
[2020-04-06] MEDS ORDERED: OXYTOCIN 10 UNITS/ML VIAL ONE ×2 (10:41→10:43)
[2020-04-06] MEDS ORDERED: KETOROLAC TROMETHAMINE 30 MG/1 ML VIAL ONE (11:14)
[2020-04-06 11:26] LABS: CORD BASE EXCESS -3.7 mmol/L (0-2); CORD PCO2 42.5 mmHg (30-78); CORD pH 7.332 (7.14-7.44)
[2020-04-06 11:37] LABS: CORD HCO3 24.5 mmHg (20-29); CORD PCO2 53.7 mmHg (30-78); CORD pH 7.277 (7.14-7.44)
[2020-04-06] MEDS ORDERED: METHYLERGONOVINE MALEATE 0.2 MG/1 ML AMP IM PRN (11:39)
[2020-04-06] MEDS ORDERED: WITCH HAZEL 50% (TUCKS) 40 PAD/JAR PAD TP PRN (11:39)
[2020-04-06] MEDS ORDERED: diphenhydrAMINE HCL 25 MG CAPSULE (FP) PO PRN (11:39)
[2020-04-06] MEDS ORDERED: BENZOCAINE 28 GM HEMORRHOIDAL OINTMENT RC PRN (11:39)
[2020-04-06] MEDS ORDERED: IBUPROFEN 800 MG/8 ML IJ IVPB PRN (11:39)
[2020-04-06] MEDS ORDERED: BENZOCAINE 20% 57 GM BOTTLE TP PRN (11:39)
[2020-04-06] MEDS ORDERED: OXYTOCIN 20 UNITS in 0.9% NS 20 UNIT/1,000 ML INFUS.BAG IV SCH (11:45)
[2020-04-06] MEDS ORDERED: ONDANSETRON 4 MG/2 ML VIAL IVPUSH PRN (12:42)
[2020-04-06] MEDS ORDERED: ACETAMINOPHEN 1000 MG/100 ML BAG IVPB PRN ×2 (12:43→12:47)
[2020-04-06] MEDS ORDERED: PROMETHAZINE HCL 25 MG/1 ML VIAL ONE (13:21)
[2020-04-07 08:21] LABS: HEMOGLOBIN 8.7 GM/dL (10.7-15.3); MCH 29.8 pg (25.7-33.7); MCHC 33.3 g/dl (32.0-36.0); MEAN CELL VOLUME 89.4 fl (80-96); MEAN PLT VOLUME 9.4 fl (7.5-11.1); PLATELET COUNT 161 K/MM3 (134-434); RBC 2.91 M/mm3 (3.60-5.2); RDW 13.7 % (11.6-15.6); WHITE BLOOD COUNT 11.8 K/mm3 (4.0-10.0)
[2020-04-07] MEDS ORDERED: oxyCODONE HCL 5 MG TABLET PO PRN ×2 (11:39)
[2020-04-07] MEDS ORDERED: BISACODYL 10 MG SUPP.RECT PR PRN (11:39)
[2020-04-07] MEDS: IBUPROFEN 600 MG TABLET (FP) PO PRN ×2 (12:45→17:26)
[2020-04-07] MEDS: SIMETHICONE 80 MG TAB.CHEW (FP) PO PRN ×2 (12:45→17:26)
[2020-04-07 20:56] VITALS: TEMP 98.1
[2020-04-08] MEDS: SIMETHICONE 80 MG TAB.CHEW (FP) PO PRN (01:15)
[2020-04-08] MEDS: IBUPROFEN 600 MG TABLET (FP) PO PRN ×2 (01:15→11:28)
[2020-04-08] MEDS ORDERED: DIPHTH,PERTUSS(ACELL),TET 0.5 ML DISP.SYRIN IM ONE (10:00)
[2020-04-08 11:23] VITALS: BP 117/69; PULSE 109
[2020-04-08] MEDS ORDERED: SENNOSIDES/DOCUSATE COMBO (SENNA PLUS) TABLET (UD) PO PRN (22:00)
== END 2020-04-08 15:35 | disposition home or self-care (01) | DRG 788 ==
LOC: JLDR 08:17 → J3W 13:34
PROVIDERS: ADMIT Obstetrics & Gynecology; ATTEND Obstetrics & Gynecology
PROC: 10D00Z1 Extraction of Products of Conception, Low, Open Approach (ICD-10-PCS; principal; 2020-04-06)
DX: O34.211 Maternal care for low transverse scar from previous cesarean delivery (principal); N85.8 Other specified noninflammatory disorders of uterus; Z3A.39 39 weeks gestation of pregnancy; Z37.0 Single live birth
CPT/HCPCS: 36415; 36600; 82803; 85027; 88307-TC